=== PATIENT | female | born 1960 | race Caucasian/White ===

== ENCOUNTER 2020-12-30 09:07 | Emergency (ER) | payer BC ==
[2020-12-30] MEDS ORDERED: Ketorolac 30 MG/ML SDV IVPUSH ONE (09:50)
--- NOTE | 2020-12-30 10:25 | EDM.PDOC ---
ED HPI GENERAL MEDICAL PROBLEM - General Chief Complaint: General Stated Complaint: STOMACH PAIN/VOMITTING Time Seen by Provider: 12/30/20 09:45 Source of Information: Reports: Patient, Family History Limitations: Reports: No Limitations - History of Present Illness INITIAL COMMENTS - FREE TEXT/NARRATIVE: 60-year-old female with a history of kidney stones developed left flank and left lower quadrant pain yesterday, she has been struggling with the discomfort for the last 24 hours and today it feels more intense, she has developed some nausea and vomiting and is very uncomfortable. No fevers or chills, no dysuria. Onset: Gradual Duration: Hour(s): (Symptoms have developed over the last 24 hours) Location: Reports: Abdomen, Back (Left flank) Associated Symptoms: Reports: Nausea/Vomiting. Denies: Confusion, Chest Pain, Cough, Fever/Chills, Malaise, Shortness of Breath - Related Data Allergies Allergy/AdvReac Type Severity Reaction Status Date / Time No Known Allergies Allergy Verified 12/16/17 14:23 Home Meds: Home Meds Pantoprazole Sodium 40 mg PO DAILY 06/15/13 [History] Venlafaxine HCl [Venlafaxine ER] 37.5 mg PO DAILY 06/15/13 [History] hydroCHLOROthiazide [Hydrochlorothiazide] 12.5 mg PO DAILY 11/18/17 [History] Past Medical History Cardiovascular History: Reports: Hypertension Gastrointestinal History: Reports: GERD Genitourinary History: Reports: Renal Calculus Musculoskeletal History: Reports: Back Pain, Chronic - Past Surgical History GI Surgical History: Reports: Appendectomy Other GI Surgeries/Procedures: rupured ulcer Social & Family History - Tobacco Use Tobacco Use Status *Q: Never Tobacco User Second Hand Smoke Exposure: No - Caffeine Use Caffeine Use: Reports: Coffee - Recreational Drug Use Recreational Drug Use: No ED ROS GENERAL - Review of Systems Review Of Systems: See Below Constitutional: Reports: Malaise. Denies: Fever, Chills HEENT: Reports: No Symptoms Respiratory: Denies: Shortness of Breath, Wheezing, Cough Cardiovascular: Denies: Chest Pain, Palpitations GI/Abdominal: Reports: Abdominal Pain, Constipation. Denies: Diarrhea : Reports: Flank Pain. Denies: Frequency, Urgency Musculoskeletal: Reports: Back Pain Skin: Reports: No Symptoms (Left side) Neurological: Reports: No Symptoms Psychiatric: Reports: No Symptoms ED EXAM, GENERAL - Physical Exam Exam: See Below Exam Limited By: No Limitations General Appearance: Alert, Anxious, Mild Distress, Other (Nauseous, fairly uncomfortable) Eye Exam: Bilateral Eye: Normal Inspection Head: Atraumatic Respiratory/Chest: No Respiratory Distress, Lungs Clear Cardiovascular: Regular Rate, Rhythm. No: Tachycardia GI/Abdominal: Soft. No: Guarding (Patient has no guarding or rebound of the abdomen, just minimal tenderness in the left lateral and left upper quadrant), Rebound Extremities: Normal Inspection Neurological: Alert, Oriented Psychiatric: Normal Affect, Normal Mood Skin Exam: Warm, Dry Course - Vital Signs Last Recorded V/S: Last Vital Signs Temp 97.7 F 12/30/20 13:53 Pulse 74 12/30/20 13:53 Resp 16 12/30/20 13:53 BP 193/105 H 12/30/20 13:53 Pulse Ox 98 12/30/20 13:53 - Orders/Labs/Meds Labs: Laboratory Tests 12/30/20 12/30/20 12/30/20 Range/Units 10:23 11:20 11:20 WBC 3.4 L (4.5-11.0) K/uL RBC 4.46 (3.30-5.50) M/uL Hgb 12.3 D (12.0-15.0) g/dL Hct 36.1 (36.0-48.0) % MCV 81 (80-98) fL MCH 28 (27-31) pg MCHC 34 (32-36) % Plt Count 258 (150-400) K/uL Neut % (Auto) 70 H (36-66) % Lymph % (Auto) 23 L (24-44) % Slope % (Auto) 6 (2-6) % Eos % (Auto) 0 L (2-4) % Baso % (Auto) 0 (0-1) % Sodium 133 L (140-148) mmol/L Potassium 4.0 (3.6-5.2) mmol/L Chloride 92 L (100-108) mmol/L Carbon Dioxide 27 (21-32) mmol/L Anion Gap 18.0 H (5.0-14.0) mmol/L BUN 9 (7-18) mg/dL Creatinine 0.8 (0.6-1.0) mg/dL Est Cr Clr Drug Dosing 68.12 mL/min Estimated GFR (MDRD) > 60 (>60) Glucose 102 (74-106) mg/dL Lactic Acid (0.4-2.0) mmol/L Calcium 8.8 (8.5-10.1) mg/dL Total Bilirubin 0.8 (0.2-1.0) mg/dL AST 28 (15-37) U/L ALT 31 (12-78) U/L Alkaline Phosphatase 88 (46-116) U/L Total Protein 7.6 (6.4-8.2) g/dL Albumin 4.0 (3.4-5.0) g/dL Globulin 3.6 H (2.3-3.5) g/dL Albumin/Globulin Ratio 1.1 L (1.2-2.2) Lipase 275 (73-393) U/L Urine Color Yellow (YELLOW) Urine Appearance Cloudy A (CLEAR) Urine pH 8.0 (5.0-8.0) Ur Specific [place] 1.020 (1.008-1.030) Urine Protein Negative (NEGATIVE) mg/dL Urine Glucose (UA) Negative (NEGATIVE) mg/dL Urine Ketones 15 H (NEGATIVE) mg/dL Urine Occult Blood Trace-intact H (NEGATIVE) Urine Nitrite Negative (NEGATIVE) Urine Bilirubin Negative (NEGATIVE) Urine Urobilinogen 0.2 (0.2-1.0) EU/dL Ur Leukocyte Esterase Negative (NEGATIVE) Urine RBC 0-5 (0-5) Urine WBC Not seen (0-5) Ur Epithelial Cells Rare Amorphous Sediment Moderate Urine Bacteria Rare Urine Mucus Not seen 12/30/20 Range/Units 11:20 WBC (4.5-11.0) K/uL RBC (3.30-5.50) M/uL Hgb (12.0-15.0) g/dL Hct (36.0-48.0) % MCV (80-98) fL MCH (27-31) pg MCHC (32-36) % Plt Count (150-400) K/uL Neut % (Auto) (36-66) % Lymph % (Auto) (24-44) % Slope % (Auto) (2-6) % Eos % (Auto) (2-4) % Baso % (Auto) (0-1) % Sodium (140-148) mmol/L Potassium (3.6-5.2) mmol/L Chloride (100-108) mmol/L Carbon Dioxide (21-32) mmol/L Anion Gap (5.0-14.0) mmol/L BUN (7-18) mg/dL Creatinine (0.6-1.0) mg/dL Est Cr Clr Drug Dosing mL/min Estimated GFR (MDRD) (>60) Glucose (74-106) mg/dL Lactic Acid 0.6 (0.4-2.0) mmol/L Calcium (8.5-10.1) mg/dL Total Bilirubin (0.2-1.0) mg/dL AST (15-37) U/L ALT (12-78) U/L Alkaline Phosphatase (46-116) U/L Total Protein (6.4-8.2) g/dL Albumin (3.4-5.0) g/dL Globulin (2.3-3.5) g/dL Albumin/Globulin Ratio (1.2-2.2) Lipase (73-393) U/L Urine Color (YELLOW) Urine Appearance (CLEAR) Urine pH (5.0-8.0) Ur Specific [place] (1.008-1.030) Urine Protein (NEGATIVE) mg/dL Urine Glucose (UA) (NEGATIVE) mg/dL Urine Ketones (NEGATIVE) mg/dL Urine Occult Blood (NEGATIVE) Urine Nitrite (NEGATIVE) Urine Bilirubin (NEGATIVE) Urine Urobilinogen (0.2-1.0) EU/dL Ur Leukocyte Esterase (NEGATIVE) Urine RBC (0-5) Urine WBC (0-5) Ur Epithelial Cells Amorphous Sediment Urine Bacteria Urine Mucus Meds: Medications Discontinued Medications Generic Name Dose Route Start Last Admin Trade Name Freq PRN Reason Stop Dose Admin Hydromorphone HCl 0.5 mg 12/30/20 11:21 12/30/20 11:27 Hydromorphone 0.5 Mg/0.5 Ml Syringe IVPUSH 12/30/20 11:22 0.5 mg ONETIME ONE Administration Hydromorphone HCl 0.5 mg 12/30/20 15:26 12/30/20 15:32 Hydromorphone 0.5 Mg/0.5 Ml Syringe IVPUSH 12/30/20 15:27 0.5 mg ONETIME ONE Administration Sodium Chloride 1,000 mls @ 999 mls/hr 12/30/20 11:21 12/30/20 11:25 Normal Saline IV 12/30/20 12:21 999 mls/hr ONETIME ONE Administration Sodium Chloride 80 mls @ 3 mls/sec 12/30/20 13:15 12/30/20 13:20 Normal Saline IV 12/30/20 13:16 3 mls/sec ASDIRECTED TANI Administration Iopamidol 100 ml 12/30/20 13:09 12/30/20 13:20 Iopamidol 612 Mg/Ml 100 Ml Bottle IV 12/31/20 13:10 100 ml . DIRECTED PRN Administration RADIOLOGY EXAM Ketorolac Tromethamine 30 mg 12/30/20 09:50 12/30/20 10:29 Ketorolac 30 Mg/Ml Sdv IVPUSH 12/30/20 09:51 30 mg ONETIME ONE Administration Metoclopramide HCl 5 mg 12/30/20 14:52 12/30/20 14:57 Metoclopramide 10 Mg/2 Ml Sdv IVPUSH 12/30/20 14:53 5 mg ONETIME ONE Administration Ondansetron HCl 4 mg 12/30/20 12:52 12/30/20 13:11 Ondansetron 4 Mg/2 Ml Sdv IVPUSH 12/30/20 12:53 4 mg ONETIME ONE Administration Sodium Chloride 10 ml 12/30/20 13:09 12/30/20 13:20 Sodium Chloride 0.9% 10 Ml Syringe FLUSH 12/30/20 13:10 10 ml ONETIME ONE Administration - Re-Assessments/Exams Free Text/Narrative Re-Assessment/Exam: 12/30/20 16:38 IV was started, patient was given 30 mg of IV Toradol and she was prepared for CT scan of the abdomen and pelvis without contrast. Surprisingly this was normal, she really did not get much relief from the Toradol and continued to be nauseated with occasional emesis so was given Zofran. CBC CMP lactic acid were drawn which were all normal, UA was obtained which showed no infection or blood. Because I could not get her pain under control that her symptoms improved, the CT scan was repeated with IV contrast looking for a possible ischemic kidney or infarction but that was normal as well. She seemed to respond better to IV Dilaudid. She was finally discharged with 10 doses of Percocet and sublingual Zofran, and encouraged to take stool softeners as the only consistent reading with the 2 CT scans with significant colonic stool present. She will return if worsening Departure - Departure Time of Disposition: 15:56 Disposition: Home, Self-Care 01 Clinical Impression: Left flank pain Nausea and vomiting Qualifiers: Vomiting type: unspecified Vomiting Intractability: non-intractable Qualified Code(s): R11.2 - Nausea with vomiting, unspecified - Discharge Information Instructions: Flank Pain, Adult, [id number] Referrals: Anne yBrd PA [Primary Care Provider] - Forms: ED Department Discharge Care Plan Goals: Try some stool softener like MiraLAX for a few days to avoid further buildup of constipation, use Zofran for nausea as needed and increase diet and activity as tolerated. Consider rechecking if worsening such as fever, increased vomiting or worsening pain despite anti-inflammatories. Use Percocet for extra pain control if needed over the next 1 to 2 days. Sepsis Event Note (ED) - Evaluation Sepsis Screening Result: No Definite Risk - Focused Exam Vital Signs: Vital Signs Temp Pulse Resp BP Pulse Ox 12/30/20 13:53 97.7 F 74 16 193/105 H 98 12/30/20 11:30 98.4 F 77 16 177/112 H 96 12/30/20 09:44 197/111 H 12/30/20 09:43 98 F 80 16 208/120 H 98 12/30/20 09:34 98 F 80 16 208/120 H 98
--- NOTE | 2020-12-30 11:07 | CRLCT ---
Indication: Left flank pain Technique: Noncontrast CT abdomen and pelvis Comparison: CT abdomen and pelvis 09/07/2012 Findings: Heart size is normal no pericardial effusion. Basilar atelectasis no effusion. Gallbladder slightly prominent. Unenhanced liver pancreas adrenal glands unremarkable spleen unremarkable. Normal caliber abdominal aorta. No renal calculi visualized. Subcentimeter slightly dense lesion in the left mid kidney too small to characterize. No hydronephrosis on the left. Slight prominence of the right renal pelvis and ureter. No obstructing stones are identified. Urinary bladder slightly distended but unremarkable. Large amount of stool throughout the entire colon. No obstruction Small amount of fluid in the pelvis. No suspicious bony lesions. Impression: 1. No acute findings in the abdomen pelvis. No renal calculi. No hydronephrosis on the left. Slight prominence of the right renal pelvis and ureter no obstructing stones visualized. 2. Large amount stool throughout the colon no obstruction seen. Please note that all CT scans at this facility use dose modulation, iterative reconstruction, and/or weight-based dosing when appropriate to reduce radiation dose to as low as reasonably achievable. Dictated by Carmen Messer MD @ 12/30/2020 11:07:[address] Carmen Messer @ Dec 30 2020 11:07AM
[2020-12-30] MEDS ORDERED: HYDROmorphone 0.5 MG/0.5 ML Syringe IVPUSH ONE ×3 (11:21→15:26)
[2020-12-30] MEDS ORDERED: Sodium Chloride 0.9% 1,000 ML IV ONE (11:21)
[2020-12-30] MEDS ORDERED: Sodium Chloride 0.9% 1,000 ML IV SCH (11:45)
[2020-12-30] MEDS ORDERED: Ondansetron 4 MG/2 ML SDV IVPUSH ONE (12:52)
[2020-12-30] MEDS ORDERED: Sodium Chloride 0.9% 10 ML Syringe FLUSH ONE (13:09)
[2020-12-30] MEDS ORDERED: Iopamidol 612 MG/ML 100 ML Bottle IV PRN (13:09)
[2020-12-30] MEDS ORDERED: Sodium Chloride 0.9% 80 ML IV SCH (13:15)
[2020-12-30 13:54] VITALS: BP 193/105; PULSE 74
--- NOTE | 2020-12-30 14:13 | CRLCT ---
INDICATION: Left flank pain TECHNIQUE: CT abdomen and pelvis urogram without and with 100 cc Omnipaque 350 IV contrast. Contrast images were obtained in the nephrographic and delayed phases. The initial noncontrast images were acquired through the abdomen only as the patient had a noncontrast CT of the abdomen and pelvis earlier today COMPARISON: Noncontrast CT 12/30/2020 FINDINGS: KIDNEYS: The unenhanced images demonstrate no kidney or ureteral stones. The kidneys are normal in caliber and demonstrate normal uptake and excretion of IV contrast. No solid masses. Nonenhancing slightly hyperdense cyst within the midportion of the left kidney represents a normal proteinaceous or hemorrhagic cyst measuring 7 millimeters, unrelated to the history of left flank pain. The renal collecting systems and ureters are symmetrical, normal in caliber, and without evidence of mass or filling defect. URINARY BLADDER: The urinary bladder is distended and without evidence of mass, wall thickening, or inflammation. OTHER: Mild dependent atelectasis/scarring. Gallbladder distended with prominence of the common bile duct. Normal tapering. Liver normal. Normal spleen and adrenal glands. Pancreatic parenchyma normal. No adenopathy or free air. No excess pelvic free fluid. No pelvic mass. Large volume stool in the transverse colon. Degenerative disc disease L5-S1 with discogenic sclerosis. Grade 1 degenerative spondylolisthesis L4 on L5. IMPRESSION: 1. Unremarkable CT urogram. No findings to explain left flank pain. 2. Incidental 7 millimeter hemorrhagic or proteinaceous cysts left kidney. 3. Large volume stool in the colon consistent with constipation. Please note that all CT scans at this facility use dose modulation, iterative reconstruction, and/or weight-based dosing when appropriate to reduce radiation dose to as low as reasonably achievable. Dictated by Danial Henry MD @ 12/30/2020 2:11:[address] Danial Henry @ Dec 30 2020 2:11PM
[2020-12-30] MEDS ORDERED: Metoclopramide 10 MG/2 ML SDV IVPUSH ONE (14:52)
== END 2020-12-30 15:56 | disposition home or self-care (01) ==
LOC: JP.ED 09:07
DX: R10.32 Left lower quadrant pain (principal); R11.2 Nausea with vomiting, unspecified; I10 Essential (primary) hypertension; K21.9 Gastro-esophageal reflux disease without esophagitis; Z79.899 Other long term (current) drug therapy
CPT/HCPCS: 36415; 74176; 74178; 80053; 81001; 83605; 83690; 85025; 96374; 96375; 96376; 99284; J1170; J1885; J2405; J2765; J7030; Q9967

== ENCOUNTER 2021-01-09 08:32 | Observation (INO) | payer BC ==
[2021-01-09] MEDS ORDERED: Ondansetron 4 MG/2 ML SDV IVPUSH ONE (09:05)
[2021-01-09] MEDS ORDERED: Sodium Chloride 0.9% 1,000 ML IV ONE (09:05)
--- NOTE | 2021-01-09 09:17 | EDM.PDOC ---
ED HPI GENERAL MEDICAL PROBLEM - General Chief Complaint: Abdominal Pain Stated Complaint: BOWEL OBSTRUCTION Time Seen by Provider: 01/09/21 09:00 Source of Information: Reports: Patient History Limitations: Reports: No Limitations - History of Present Illness INITIAL COMMENTS - FREE TEXT/NARRATIVE: 60-year-old female with persistent symptoms of pain in the left lower quadrant for the past 10 days. She felt she passed a kidney stone several days ago, but is continuing to have problems with abdominal pain, nausea with eating and emesis. No fevers or chills, no urinary symptoms. The pain is very localized to the left lower quadrant, at times radiating to the left flank. She was seen in the clinic 2 days ago and was told she still has "lots of stool but no obstruction", she is still taking a lot of laxatives. Onset: Other (Symptoms have been ongoing for almost 2 weeks) Location: Reports: Abdomen (Especially in left lower quadrant), Radiates to (Some intermittent radiation to the left flank area) Worsens with: Reports: Other (Anytime she tries to eat, she becomes more nauseated and has increased pain) Abdominal Pain Score (Numeric/FACES): 9 - Related Data Allergies Allergy/AdvReac Type Severity Reaction Status Date / Time No Known Allergies Allergy Verified 01/09/21 08:50 Home Meds: Home Meds Pantoprazole Sodium 40 mg PO DAILY 06/15/13 [History] Venlafaxine HCl [Venlafaxine ER] 37.5 mg PO DAILY 06/15/13 [History] hydroCHLOROthiazide [Hydrochlorothiazide] 12.5 mg PO DAILY 11/18/17 [History] Past Medical History HEENT History: Reports: None Cardiovascular History: Reports: Hypertension Respiratory History: Reports: None Gastrointestinal History: Reports: GERD, PUD Genitourinary History: Reports: Renal Calculus Musculoskeletal History: Reports: Back Pain, Chronic Neurological History: Reports: None Psychiatric History: Reports: None Endocrine/Metabolic History: Reports: None Hematologic History: Reports: None Immunologic History: Reports: None Oncologic (Cancer) History: Reports: None Dermatologic History: Reports: None - Infectious Disease History Infectious Disease History: Reports: Chicken Pox - Past Surgical History HEENT Surgical History: Reports: None GI Surgical History: Reports: Appendectomy Other GI Surgeries/Procedures: rupured ulcer Social & Family History - Tobacco Use Tobacco Use Status *Q: Never Tobacco User - Caffeine Use Caffeine Use: Reports: None - Recreational Drug Use Recreational Drug Use: No ED ROS GENERAL - Review of Systems Review Of Systems: See Below Constitutional: Denies: Fever, Chills HEENT: Reports: No Symptoms Respiratory: Denies: Shortness of Breath, Cough Cardiovascular: Denies: Chest Pain GI/Abdominal: Reports: Abdominal Pain, Decreased Appetite, Nausea, Vomiting. Denies: Diarrhea : Reports: No Symptoms Skin: Reports: No Symptoms Neurological: Reports: No Symptoms ED EXAM, GI/ABD - Physical Exam Exam: See Below Exam Limited By: No Limitations General Appearance: Alert, No Apparent Distress (Looks uncomfortable but not distressed) Eyes: Bilateral: Normal Appearance (No jaundice) Respiratory/Chest: No Respiratory Distress Cardiovascular: Regular Rate, Rhythm GI/Abdominal Exam: Soft, Tender (glass cleaning machine tender locally in the extreme left lower quadrant, mild rebound tenderness is now present but no significant guarding) Neurological: Alert, Oriented Psychiatric: Normal Affect, Normal Mood Skin Exam: Warm, Dry Course - Vital Signs Last Recorded V/S: Last Vital Signs Temp 98.6 F 01/10/21 08:51 Pulse 86 01/10/21 08:51 Resp 16 01/10/21 08:51 BP 160/101 H 01/10/21 08:51 Pulse Ox 100 01/10/21 08:51 - Orders/Labs/Meds Orders: Active Orders 24 hr Category Date Time Status Patient Status [ADT] Routine ADT 01/09/21 16:43 Active Ambulate [RC] QID Care 01/09/21 16:43 Active Height and Weight [RC] DAILY Care 01/09/21 16:43 Active Intake and Output [RC] QSHIFT Care 01/09/21 16:43 Active Notify Provider Consults [RC] ASDIRECTED Care 01/09/21 16:43 Active Notify Provider Vital Signs [RC] ASDIRECTED Care 01/09/21 16:43 Active Oxygen Therapy [RC] PRN Care 01/09/21 16:43 Active Peripheral IV Care [RC] . DIRECTED Care 01/09/21 16:43 Active Up ad Jumana [RC] ASDIRECTED Care 01/09/21 16:43 Active Up to Chair [RC] QID Care 01/09/21 16:43 Active VTE/DVT Education [RC] Per Unit Routine Care 01/09/21 16:43 Active Verify Patient Consent Obtain [RC] ASDIRECTED Care 01/09/21 16:43 Active Vital Signs [RC] Q4H Care 01/09/21 16:43 Active Consult to Physician [CONS] Routine Cons 01/09/21 16:43 Ordered Acetaminophen [TylenoL] Med 01/09/21 16:43 Active 650 mg PO Q4H PRN HYDROmorphone [Dilaudid] Med 01/09/21 16:43 Active 0.5 mg IVPUSH Q2H PRN Labetalol [Normodyne] Med 01/09/21 16:43 Active 10 mg IVPUSH Q4H PRN Ondansetron [Zofran] Med 01/09/21 16:43 Active 4 mg IV Q4H PRN Pantoprazole [ProTONIX] Med 01/10/21 07:30 Active 40 mg PO DAILY@0730 Sodium Chloride 0.9% [Normal Saline] 1,000 ml Med 01/09/21 16:43 Active IV ASDIRECTED Sodium Chloride 0.9% [Saline Flush] Med 01/09/21 16:43 Active 10 ml FLUSH ASDIRECTED PRN Venlafaxine [Effexor XR] Med 01/10/21 09:00 Active 37.5 mg PO DAILY hydroCHLOROthiazide Med 01/09/21 16:43 Active 12.5 mg PO DAILY oxyCODONE Med 01/09/21 16:43 Active 5 mg PO Q4H PRN Peripheral IV Insertion Adult [OM.PC] Routine Oth 01/09/21 16:43 Ordered Schedule Procedure [COMM] Routine Oth 01/09/21 16:43 Ordered Sequential Compression Device [OM.PC] Per Unit Routine Oth 01/09/21 16:43 Ordered Resuscitation Status Routine Resus Stat 01/09/21 16:21 Ordered Medication Orders Acetaminophen (Acetaminophen 325 Mg Tab) 650 mg PO Q4H PRN PRN Reason: Pain (Mild 1-3)/fever Last Admin: 01/10/21 08:58 Dose: 650 mg Documented by: Admin: 01/09/21 22:55 Dose: 650 mg Documented by: WILMER Hydrochlorothiazide (Hydrochlorothiazide 12.5 Mg Cap) 12.5 mg PO DAILY TANI Last Admin: 01/10/21 08:57 Dose: 12.5 mg Documented by: Admin: 01/09/21 17:10 Dose: 12.5 mg Documented by: BELLA Hydromorphone HCl (Hydromorphone 0.5 Mg/0.5 Ml Syringe) 0.5 mg IVPUSH Q2H PRN PRN Reason: Pain (severe 7-10) Sodium Chloride (Normal Saline) 1,000 mls @ 125 mls/hr IV ASDIRECTED [facility] Last Admin: 01/10/21 09:06 Dose: 125 mls/hr Documented by: Infusion: 01/10/21 09:06 Dose: 125 mls/hr Documented by: Admin: 01/10/21 01:33 Dose: 125 mls/hr Documented by: Infusion: 01/10/21 01:24 Dose: 125 mls/hr Documented by: Admin: 01/09/21 17:24 Dose: 125 mls/hr Documented by: BELLA Labetalol HCl (Labetalol 20 Mg/4 Ml Syringe) 10 mg IVPUSH Q4H PRN; Protocol PRN Reason: Hypertension Ondansetron HCl (Ondansetron 4 Mg/2 Ml Sdv) 4 mg IV Q4H PRN PRN Reason: Nausea/Vomiting Oxycodone HCl (Oxycodone 5 Mg Tab) 5 mg PO Q4H PRN PRN Reason: Pain (moderate 4-6) Pantoprazole Sodium (Pantoprazole 40 Mg Tab.Cr) 40 mg PO DAILY@0730 [facility] Last Admin: 01/10/21 08:57 Dose: 40 mg Documented by: MARCELLA Polyethylene Glycol (Polyethylene Glycol 3350 Powder 119 Gm Bottle) 119 gm PO BID@0900,1600 [facility] Stop: 01/10/21 16:01 Last Admin: 01/10/21 08:57 Dose: 119 gm Documented by: MARCELLA Sodium Chloride (Sodium Chloride 0.9% 10 Ml Syringe) 10 ml FLUSH ASDIRECTED PRN PRN Reason: Keep Vein Open Venlafaxine HCl (Venlafaxine 37.5 Mg Cap.Er) 37.5 mg PO DAILY [facility] Last Admin: 01/10/21 08:57 Dose: 37.5 mg Documented by: MARCELLA Labs: Laboratory Tests 05/08/2001/09/21 01/09/21 Range/Units 09:23 09:23 09:23 WBC 3.2 L (4.5-11.0) K/uL RBC 4.59 (3.30-5.50) M/uL Hgb 12.3 (12.0-15.0) g/dL Hct 37.3 (36.0-48.0) % MCV 81 (80-98) fL MCH 27 (27-31) pg MCHC 33 (32-36) % Plt Count 333 (150-400) K/uL Neut % (Auto) 52 (36-66) % Lymph % (Auto) 32 (24-44) % [place] % (Auto) 14 H (2-6) % Eos % (Auto) 1 L (2-4) % Baso % (Auto) 1 (0-1) % Sodium 127 L (140-148) mmol/L Potassium 3.9 (3.6-5.2) mmol/L Chloride 89 L (100-108) mmol/L Carbon Dioxide 27 (21-32) mmol/L Anion Gap 14.9 H (5.0-14.0) mmol/L BUN 9 (7-18) mg/dL Creatinine 0.7 (0.6-1.0) mg/dL Est Cr Clr Drug Dosing 72.72 mL/min Estimated GFR (MDRD) > 60 (>60) Glucose 106 (74-106) mg/dL Lactic Acid 0.9 (0.4-2.0) mmol/L Calcium 9.0 (8.5-10.1) mg/dL Total Bilirubin 0.6 (0.2-1.0) mg/dL AST 23 (15-37) U/L ALT 30 (12-78) U/L Alkaline Phosphatase 73 (46-116) U/L Total Protein 7.5 (6.4-8.2) g/dL Albumin 4.1 (3.4-5.0) g/dL Globulin 3.4 (2.3-3.5) g/dL Albumin/Globulin Ratio 1.2 (1.2-2.2) Urine Color (YELLOW) Urine Appearance (CLEAR) Urine pH (5.0-8.0) Ur Specific [place] (1.008-1.030) Urine Protein (NEGATIVE) mg/dL Urine Glucose (UA) (NEGATIVE) mg/dL Urine Ketones (NEGATIVE) mg/dL Urine Occult Blood (NEGATIVE) Urine Nitrite (NEGATIVE) Urine Bilirubin (NEGATIVE) Urine Urobilinogen (0.2-1.0) EU/dL Ur Leukocyte Esterase (NEGATIVE) Urine RBC (0-5) Urine WBC (0-5) Ur Epithelial Cells Amorphous Sediment Urine Bacteria Urine Mucus 01/09/21 Range/Units 09:35 WBC (4.5-11.0) K/uL RBC (3.30-5.50) M/uL Hgb (12.0-15.0) g/dL Hct (36.0-48.0) % MCV (80-98) fL MCH (27-31) pg MCHC (32-36) % Plt Count (150-400) K/uL Neut % (Auto) (36-66) % Lymph % (Auto) (24-44) % [place] % (Auto) (2-6) % Eos % (Auto) (2-4) % Baso % (Auto) (0-1) % Sodium (140-148) mmol/L Potassium (3.6-5.2) mmol/L Chloride (100-108) mmol/L Carbon Dioxide (21-32) mmol/L Anion Gap (5.0-14.0) mmol/L BUN (7-18) mg/dL Creatinine (0.6-1.0) mg/dL Est Cr Clr Drug Dosing mL/min Estimated GFR (MDRD) (>60) Glucose (74-106) mg/dL Lactic Acid (0.4-2.0) mmol/L Calcium (8.5-10.1) mg/dL Total Bilirubin (0.2-1.0) mg/dL AST (15-37) U/L ALT (12-78) U/L Alkaline Phosphatase (46-116) U/L Total Protein (6.4-8.2) g/dL Albumin (3.4-5.0) g/dL Globulin (2.3-3.5) g/dL Albumin/Globulin Ratio (1.2-2.2) Urine Color Yellow (YELLOW) Urine Appearance Clear (CLEAR) Urine pH 6.0 (5.0-8.0) Ur Specific [place] 1.020 (1.008-1.030) Urine Protein Negative (NEGATIVE) mg/dL Urine Glucose (UA) Negative (NEGATIVE) mg/dL Urine Ketones 15 H (NEGATIVE) mg/dL Urine Occult Blood Negative (NEGATIVE) Urine Nitrite Negative (NEGATIVE) Urine Bilirubin Small H (NEGATIVE) Urine Urobilinogen 0.2 (0.2-1.0) EU/dL Ur Leukocyte Esterase Trace H (NEGATIVE) Urine RBC 0-5 (0-5) Urine WBC 0-5 (0-5) Ur Epithelial Cells Rare Amorphous Sediment Not seen Urine Bacteria Rare Urine Mucus Not seen Meds: Medications Generic Name Dose Route Start Last Admin Trade Name Freq PRN Reason Stop Dose Admin Acetaminophen 650 mg 01/09/21 16:43 01/10/21 08:58 Acetaminophen 325 Mg Tab PO 650 mg Q4H PRN Administration Pain (Mild 1-3)/fever Hydrochlorothiazide 12.5 mg 01/09/21 16:43 01/10/21 08:57 Hydrochlorothiazide 12.5 Mg Cap PO 12.5 mg DAILY TANI Administration Hydromorphone HCl 0.5 mg 01/09/21 16:43 Hydromorphone 0.5 Mg/0.5 Ml Syringe IVPUSH Q2H PRN Pain (severe 7-10) Sodium Chloride 1,000 mls @ 125 mls/hr 01/09/21 16:43 01/10/21 09:06 Normal Saline IV 125 mls/hr ASDIRECTED TANI Administration Labetalol HCl 10 mg 01/09/21 16:43 Labetalol 20 Mg/4 Ml Syringe IVPUSH Q4H PRN Hypertension Protocol Ondansetron HCl 4 mg 01/09/21 16:43 Ondansetron 4 Mg/2 Ml Sdv IV Q4H PRN Nausea/Vomiting Oxycodone HCl 5 mg 01/09/21 16:43 Oxycodone 5 Mg Tab PO Q4H PRN Pain (moderate 4-6) Pantoprazole Sodium 40 mg 01/10/21 07:30 01/10/21 08:57 Pantoprazole 40 Mg Tab.Cr PO 40 mg DAILY@0730 TANI Administration Polyethylene Glycol 119 gm 01/10/21 09:00 01/10/21 08:57 Polyethylene Glycol 3350 Powder 119 Gm Bottle PO 01/10/21 16:01 119 gm BID@0900,1600 TANI Administration Sodium Chloride 10 ml 01/09/21 16:43 Sodium Chloride 0.9% 10 Ml Syringe FLUSH ASDIRECTED PRN Keep Vein Open Venlafaxine HCl 37.5 mg 01/10/21 09:00 01/10/21 08:57 Venlafaxine 37.5 Mg Cap.Er PO 37.5 mg DAILY TANI Administration Discontinued Medications Generic Name Dose Route Start Last Admin Trade Name Freq PRN Reason Stop Dose Admin Bisacodyl 10 mg 01/09/21 17:30 01/09/21 17:10 Bisacodyl 5 Mg Tab PO 01/09/21 17:31 10 mg ONETIME ONE Administration Bisacodyl 10 mg 01/09/21 21:00 01/09/21 20:41 Bisacodyl 5 Mg Tab PO 01/09/21 21:01 10 mg ONETIME ONE Administration Diatrizoate Meglum/Diatrizoate Sod 1,200 ml 01/09/21 13:17 01/09/21 14:13 Diatrizoate Meglumine/Diatrizoate Sodium 37% 120 Ml Bottle PO 1,200 ml . DIRECTED PRN Administration RADIOLOGY EXAM Fentanyl 50 mcg 01/09/21 11:13 01/09/21 11:19 Fentanyl 100 Mcg/2 Ml Sdv IVPUSH 01/09/21 11:14 50 mcg ONETIME ONE Administration Fentanyl 50 mcg 01/09/21 14:38 01/09/21 14:48 Fentanyl 100 Mcg/2 Ml Sdv IVPUSH 01/09/21 14:39 50 mcg ONETIME ONE Administration Sodium Chloride 1,000 mls @ 1,000 mls/hr 01/09/21 09:05 01/09/21 09:46 Normal Saline IV 01/09/21 10:04 1,000 mls/hr .BOLUS ONE Administration Sodium Chloride 70 mls @ 3 mls/sec 01/09/21 11:30 01/09/21 11:31 Normal Saline IV 01/09/21 11:45 3 mls/sec ASDIRECTED TANI Administration Iopamidol 81 ml 01/09/21 11:16 01/09/21 11:32 Iopamidol 612 Mg/Ml 500 Ml Multipack Bottle IV 01/09/21 11:17 81 ml ONETIME ONE Administration Labetalol HCl 10 mg 01/09/21 12:10 01/09/21 12:32 Labetalol 20 Mg/4 Ml Syringe IVPUSH 01/09/21 12:11 10 mg NOW ONE Administration Protocol Ondansetron HCl 4 mg 01/09/21 09:05 01/09/21 09:47 Ondansetron 4 Mg/2 Ml Sdv IVPUSH 01/09/21 09:06 4 mg ONETIME ONE Administration Polyethylene Glycol 238 gm 01/09/21 18:00 01/09/21 17:18 Polyethylene Glycol 3350 Powder 238 Gm Bot PO 01/09/21 18:01 238 gm ONETIME ONE Administration Potassium Chloride 40 meq 01/10/21 09:00 01/10/21 09:00 Potassium Chloride 20 Meq Tab.Er PO 01/10/21 09:01 40 meq ONETIME ONE Administration Sodium Biphosphate/Sodium Phosphate 133 ml 01/09/21 17:30 01/09/21 17:17 Sodium Phosphate,Monobasic/Sodium Phosphate,Dibasic Enema 133 Ml Bottle RECTAL 01/09/21 17:31 133 ml ONETIME ONE Administration Sodium Chloride 10 ml 01/09/21 11:16 01/09/21 12:08 Sodium Chloride 0.9% 10 Ml Syringe FLUSH 01/09/21 11:17 10 ml ONETIME ONE Administration - Re-Assessments/Exams Free Text/Narrative Re-Assessment/Exam: 01/09/21 09:27 A UA will be repeated, CBC CMP drawn and patient will be bolused with 1 L normal saline and given 4 mg of IV Zofran in preparation of an IV enhanced abdomen and pelvis CT with both oral and IV contrast. 01/09/21 11:13 Labs and urine were nonspecific, reassuring. She was given 50 mcg of fentanyl because the pain increased with the oral contrast. 01/09/21 15:03 Labs again returned generally reassuring. She does have some ketones in her urine indicating mild dehydration. A CT of the abdomen with both oral and IV contrast was done which showed again significant retention of stool with a possible point of blockage in the sigmoid. After discussion with Dr. Hawkins, a CT of the abdomen and pelvis with Gastrografin contrast was done which was discussed with radiology and surgery. Patient needed 2 doses of fentanyl IV to help with the pain. She has an extremely redundant colon, Dr. Hawkins's plan was to have her admitted, hydrated, and try to prepare for colonoscopy over the next several days. Patient was comfortable with the plan, Dr. Branch was consulted for admission with eventual surgical consultation and probably GI consultation as well. After the Gastrografin enema, she only had a small amount of stool released, it was also recommended she get a delayed KUB tomorrow morning. Departure - Departure Time of Disposition: 16:46 Disposition: Admitted As Inpatient 66 Clinical Impression: Abdominal pain Qualifiers: Abdominal location: left lower quadrant Qualified Code(s): R10.32 - Left lower quadrant pain Constipation Qualifiers: Constipation type: other constipation type Qualified Code(s): K59.09 - Other constipation - Discharge Information Sepsis Event Note (ED) - Evaluation Sepsis Screening Result: No Definite Risk
[2021-01-09] MEDS ORDERED: fentaNYL 100 MCG/2 ML SDV IVPUSH ONE ×2 (11:13→14:38)
[2021-01-09] MEDS ORDERED: Sodium Chloride 0.9% 10 ML Syringe FLUSH ONE (11:16)
[2021-01-09] MEDS ORDERED: Iopamidol 612 MG/ML 500 ML Multipack Bottle IV ONE (11:16)
--- NOTE | 2021-01-09 12:15 | CT ---
Abdomen Pelvis w Cont CLINICAL HISTORY: Persistent abdominal pain, fecal retention COMPARISON: Noncontrast study 12/30/2020. TECHNIQUE: Transverse scans were obtained from the base of the lungs to the pubic symphysis following oral contrast and IV infusion of contrast.Auto dosage reduction and iterative reconstructiontechniques employed. FINDINGS: There is significant fecal retention throughout the colon with dilatation. There is a relatively normal caliber sigmoid colon which is not well seen. Some element of sigmoid obstruction is not excluded. The lung bases are clear. The liver shows no mass or biliary dilatation. The gallbladder is mildly prominent but similar in appearance to prior study. No stones are seen. The spleen has a normal size and shape. The pancreas shows no mass or inflammatory change. The adrenal glands appear normal bilaterally . The kidneys show no mass, stones or hydronephrosis. Ureters have a normal course and caliber as seen.. The small calcification previously seen in the region of the distal ureter on prior study persists. There is some contrast in prominent the pelvic veins on the left. This calcification is likely vascular as opposed to urinary. There is a prominent left ovarian vein The aorta has a normal course and caliber. There is no suspicious retroperitoneal adenopathy. IMPRESSION: Significant fecal retention with much of the colon being dilated. The sigmoid and rectum have a normal caliber as seen. There is some limitation due to a paucity of pelvic fat and is adjacent to opacified bowel. Further investigation warranted. A limited Gastrografin contrast enema is a consideration to exclude sigmoid obstruction Previously described calcification in the low left pelvis near the distal ureter is most likely vascular in nature as opposed to urinary
[2021-01-09] MEDS: Labetalol 20 MG/4 ML Syringe IVPUSH ONE ×2 (12:30→12:32)
[2021-01-09] MEDS ORDERED: Diatrizoate Meglumine/Diatrizoate Sodium 37% 120 ML Bottle PO PRN (13:17)
--- NOTE | 2021-01-09 14:46 | CR ---
Water-soluble contrast Enema Comp CLINICAL HISTORY: Left lower quadrant pain, constipation FINDINGS: Pulmonary film of the abdomen shows moderate fecal retention which is also seen on prior CT abdomen. There is some contrast in the bladder and in the right colon from prior CT Are soluble contrast flowed from the rectum through a very tortuous sigmoid colon. There is some delay in filling of the descending colon. There is some smooth narrowing seen in the early filling films in the proximal third of the sigmoid. This appears to resolve on latter images Delayed images showed contrast extending into the descending colon and a very redundant transverse colon which drops into the pelvis again. IMPRESSION: Very redundant colon Significant retained feces. This probably was fecal impaction in that no definite annular constricting lesion or stricture is identified. A short segment lesion would be difficult to absolutely exclude. There is eventual flow into the descending and transverse colon. Patient did not evacuate significantly post procedure. Delayed KUB should be considered for the a.m.
--- NOTE | 2021-01-09 16:34 | PCM.HP.2 ---
H&P History of Present Illness - General Date of Service: 01/09/21 Admit Problem/Dx: Admission Diagnosis/Problem Admission Diagnosis/Problem Constipation Source of Information: Patient, Old Records, Provider, RN Notes Reviewed History Limitations: Reports: No Limitations - History of Present Illness Initial Comments - Free Text/Narative: Ms. Rodriguez is a 60-year-old woman who was admitted through the emergency department observation status with left lower quadrant abdominal pain, nausea and vomiting, secondary to severe constipation and probable underlying colon dysfunction. She has had a lifelong history of constipation. This has become much worse over the past 3 weeks, during this period of time has had only minimal stool output. She has been seen previously in the emergency department and at that time CT scan did document significant stool retention and some e nlargement of the colon. She has tried several things at home including multiple cathartics with no significant improvement. She has experienced increased left lower quadrant abdominal pain as well as nausea vomiting with very poor oral intake. CT scan of the abdomen pelvis was repeated today and again shows significant amount of retained stool with some enlargement of the colon. Barium enema was also performed showing no obvious obstruction. She will be admitted to observation status for management of her constipation and colonoscopy if possible. Abdominal Pain Score (Numeric/FACES): 4 - Related Data Allergies/Adverse Reactions: Allergies Allergy/AdvReac Type Severity Reaction Status Date / Time No Known Allergies Allergy Verified 01/09/21 08:50 Home Medications: Home Meds Pantoprazole Sodium 40 mg PO DAILY 06/15/13 [History] Venlafaxine HCl [Venlafaxine ER] 37.5 mg PO DAILY 06/15/13 [History] hydroCHLOROthiazide [Hydrochlorothiazide] 12.5 mg PO DAILY 11/18/17 [History] Past Medical History HEENT History: Reports: None Cardiovascular History: Reports: Hypertension Respiratory History: Reports: None Gastrointestinal History: Reports: GERD, PUD Genitourinary History: Reports: Renal Calculus Musculoskeletal History: Reports: Back Pain, Chronic Neurological History: Reports: None Psychiatric History: Reports: None Endocrine/Metabolic History: Reports: None Hematologic History: Reports: None Immunologic History: Reports: None Oncologic (Cancer) History: Reports: None Dermatologic History: Reports: None - Infectious Disease History Infectious Disease History: Reports: Chicken Pox - Past Surgical History HEENT Surgical History: Reports: None GI Surgical History: Reports: Appendectomy Other GI Surgeries/Procedures: rupured ulcer Social & Family History - Tobacco Use Tobacco Use Status *Q: Never Tobacco User - Caffeine Use Caffeine Use: Reports: None - Recreational Drug Use Recreational Drug Use: No H&P Review of Systems - Review of Systems: Review Of Systems: See Below General: Reports: Weakness, Decreased Appetite. Denies: Fever, Chills, Malaise, Fatigue, Night Sweats HEENT: Reports: No Symptoms Pulmonary: Reports: No Symptoms Cardiovascular: Reports: No Symptoms Gastrointestinal: Reports: Abdominal Pain, Constipation, Decreased Appetite, Distension, Nausea, Vomiting. Denies: Diarrhea, Difficulty Swallowing, Hematemesis, Hematochezia, Melena Genitourinary: Reports: No Symptoms Musculoskeletal: Reports: No Symptoms Skin: Reports: No Symptoms Psychiatric: Reports: No Symptoms Neurological: Reports: No Symptoms Hematologic/Lymphatic: Reports: No Symptoms Immunologic: Reports: No Symptoms Exam - Exam Exam: See Below - Vital Signs Vital Signs: Last Vital Signs Temp 97.0 F 01/09/21 08:41 Pulse 70 01/09/21 16:18 Resp 18 01/09/21 11:52 BP 173/109 H 01/09/21 16:18 Pulse Ox 99 01/09/21 16:18 Weight: 118 lb 13.266 oz - Exam Quality Assessment: DVT Prophylaxis General: Alert, Oriented, Cooperative, Moderate Distress HEENT: Conjunctiva Clear, Hearing Intact, Normal Nasal Septum, Posterior Pharynx Clear, Pupils Equal. No: Mucosa Moist & [place] Neck: Supple, Trachea Midline, +2 Carotid Pulse wo Bruit Lungs: Clear to Auscultation, Normal Respiratory Effort Cardiovascular: Regular Rate, Regular Rhythm, Normal S1, Normal S2. No: Systolic Murmur, Diastolic Murmur GI/Abdominal Exam: Soft, No Organomegaly, Distended, Tender. No: Guarding, Rigid, Rebound Back Exam: Normal Inspection, Full Range of Motion Extremities: Non-Tender, No Pedal Edema Skin: Warm, Dry, Intact Neurological: Cranial Nerves Intact, Strength Equal Bilateral, Normal Speech, Normal Tone, Sensation Intact. No: Focal Deficit Neuro Extensive - Mental Status: Alert, Oriented x3, Normal Mood/Affect, Normal Cognition, Memory Intact - Patient Data Lab Results Last 24 hrs: Laboratory Results - last 24 hr 01/09/21 01/09/21 01/09/21 Range/Units 09:23 09:23 09:23 WBC 3.2 L (4.5-11.0) K/uL RBC 4.59 (3.30-5.50) M/uL Hgb 12.3 (12.0-15.0) g/dL Hct 37.3 (36.0-48.0) % MCV 81 (80-98) fL MCH 27 (27-31) pg MCHC 33 (32-36) % Plt Count 333 (150-400) K/uL Neut % (Auto) 52 (36-66) % Lymph % (Auto) 32 (24-44) % [place] % (Auto) 14 H (2-6) % Eos % (Auto) 1 L (2-4) % Baso % (Auto) 1 (0-1) % Sodium 127 L (140-148) mmol/L Potassium 3.9 (3.6-5.2) mmol/L Chloride 89 L (100-108) mmol/L Carbon Dioxide 27 (21-32) mmol/L Anion Gap 14.9 H (5.0-14.0) mmol/L BUN 9 (7-18) mg/dL Creatinine 0.7 (0.6-1.0) mg/dL Est Cr Clr Drug Dosing 72.72 mL/min Estimated GFR (MDRD) > 60 (>60) Glucose 106 (74-106) mg/dL Lactic Acid 0.9 (0.4-2.0) mmol/L Calcium 9.0 (8.5-10.1) mg/dL Total Bilirubin 0.6 (0.2-1.0) mg/dL AST 23 (15-37) U/L ALT 30 (12-78) U/L Alkaline Phosphatase 73 (46-116) U/L Total Protein 7.5 (6.4-8.2) g/dL Albumin 4.1 (3.4-5.0) g/dL Globulin 3.4 (2.3-3.5) g/dL Albumin/Globulin Ratio 1.2 (1.2-2.2) Urine Color (YELLOW) Urine Appearance (CLEAR) Urine pH (5.0-8.0) Ur Specific [place] (1.008-1.030) Urine Protein (NEGATIVE) mg/dL Urine Glucose (UA) (NEGATIVE) mg/dL Urine Ketones (NEGATIVE) mg/dL Urine Occult Blood (NEGATIVE) Urine Nitrite (NEGATIVE) Urine Bilirubin (NEGATIVE) Urine Urobilinogen (0.2-1.0) EU/dL Ur Leukocyte Esterase (NEGATIVE) Urine RBC (0-5) Urine WBC (0-5) Ur Epithelial Cells Amorphous Sediment Urine Bacteria Urine Mucus 01/09/21 Range/Units 09:35 WBC (4.5-11.0) K/uL RBC (3.30-5.50) M/uL Hgb (12.0-15.0) g/dL Hct (36.0-48.0) % MCV (80-98) fL MCH (27-31) pg MCHC (32-36) % Plt Count (150-400) K/uL Neut % (Auto) (36-66) % Lymph % (Auto) (24-44) % [place] % (Auto) (2-6) % Eos % (Auto) (2-4) % Baso % (Auto) (0-1) % Sodium (140-148) mmol/L Potassium (3.6-5.2) mmol/L Chloride (100-108) mmol/L Carbon Dioxide (21-32) mmol/L Anion Gap (5.0-14.0) mmol/L BUN (7-18) mg/dL Creatinine (0.6-1.0) mg/dL Est Cr Clr Drug Dosing mL/min Estimated GFR (MDRD) (>60) Glucose (74-106) mg/dL Lactic Acid (0.4-2.0) mmol/L Calcium (8.5-10.1) mg/dL Total Bilirubin (0.2-1.0) mg/dL AST (15-37) U/L ALT (12-78) U/L Alkaline Phosphatase (46-116) U/L Total Protein (6.4-8.2) g/dL Albumin (3.4-5.0) g/dL Globulin (2.3-3.5) g/dL Albumin/Globulin Ratio (1.2-2.2) Urine Color Yellow (YELLOW) Urine Appearance Clear (CLEAR) Urine pH 6.0 (5.0-8.0) Ur Specific [place] 1.020 (1.008-1.030) Urine Protein Negative (NEGATIVE) mg/dL Urine Glucose (UA) Negative (NEGATIVE) mg/dL Urine Ketones 15 H (NEGATIVE) mg/dL Urine Occult Blood Negative (NEGATIVE) Urine Nitrite Negative (NEGATIVE) Urine Bilirubin Small H (NEGATIVE) Urine Urobilinogen 0.2 (0.2-1.0) EU/dL Ur Leukocyte Esterase Trace H (NEGATIVE) Urine RBC 0-5 (0-5) Urine WBC 0-5 (0-5) Ur Epithelial Cells Rare Amorphous Sediment Not seen Urine Bacteria Rare Urine Mucus Not seen Result Diagrams: 01/09/21 09:23 01/09/21 09:23 Sepsis Event Note - Evaluation Sepsis Screening Result: No Definite Risk - Focused Exam Vital Signs: Vital Signs Temp Pulse Resp BP Pulse Ox 01/09/21 16:18 70 173/109 H 99 01/09/21 14:33 75 184/102 H 01/09/21 12:26 77 182/137 H 100 01/09/21 11:52 74 18 191/131 H 100 01/09/21 11:00 72 202/119 H 100 01/09/21 10:00 78 192/127 H 99 01/09/21 08:41 97.0 F 93 16 148/112 H 100 *Q Meaningful Use (ADM) - VTE Risk Assess *Q Each Risk Factor Represents 1 Point: None Total Score 1 Point Risk Factors: 0 Each Risk Factor Represents 2 Points: Age 60 - 74 Years Total Score 2 Point Risk Factors: 2 Each Risk Factor Represents 3 Points: None Total Score 3 Point Risk Factors: 0 Each Risk Factor Represents 5 Points: None Total Score 5 Point Risk Factors: 0 Venous Thromboembolism Risk Factor Score *Q: 2 Problem List Initiated/Reviewed/Updated: Yes Orders Last 24hrs: Active Orders 24 hr Category Date Time Status Patient Status Manage Transfer [TRANSFER] Routine ADT 01/09/21 16:20 Active Resuscitation Status Routine Resus Stat 01/09/21 16:21 Ordered Assessment/Plan Comment:: ASSESSMENT AND PLAN SEVERE CONSTIPATION-complicated by nausea and vomiting with poor oral intake, as well as persistent left lower quadrant abdominal pain. Evaluation today with CT scan and barium enema shows significant retained stool, no evidence of obvious obstruction. -IV fluids for hydration -Clear liquid diet, n.p.o. after midnight -Nausea and pain medication as needed -Fleet enema -Colonoscopy prep -Consult Dr. Hawkins for surgical opinion and possible colonoscopy in a.m. HYPERTENSION-history of hypertension and blood pressure has been significantly elevated in the emergency department -Continue outpatient medical therapy -Labetalol 10 mg every 4 hours as needed MAINTENANCE ISSUES -DVT prophylaxis; SCUDs -GI prophylaxis; continue outpatient PPI therapy -Butler catheter; not indicated -Nutrition; clear liquid diet, n.p.o. after midnight -Nicotine dependence; not required CODE STATUS-FULL CODE ADMISSION STATUS-this patient will be admitted to observation status, expect no more than a one night hospital stay for evaluation and management of problems as outlined above. DISPOSITION-anticipate discharge to home after the hospital stay. PRIMARY CARE PROVIDER-Nelda Byrd - Mortality Measure Prognosis:: Good
[2021-01-09] MEDS ORDERED: Ondansetron 4 MG/2 ML SDV IV PRN (16:43)
[2021-01-09] MEDS ORDERED: Labetalol 20 MG/4 ML Syringe IVPUSH PRN (16:43)
[2021-01-09] MEDS ORDERED: oxyCODONE 5 MG Tab PO PRN (16:43)
[2021-01-09] MEDS ORDERED: HYDROmorphone 0.5 MG/0.5 ML Syringe IVPUSH PRN (16:43)
[2021-01-09] MEDS ORDERED: Sodium Chloride 0.9% 10 ML Syringe FLUSH PRN (16:43)
[2021-01-09] MEDS: Hydrochlorothiazide 12.5 MG Cap PO SCH (17:10)
[2021-01-09] MEDS: Sodium Chloride 0.9% 1,000 ML IV SCH (17:24)
[2021-01-09] MEDS ORDERED: Sodium Phosphate,Monobasic/Sodium Phosphate,Dibasic Enema 133 ML Bottle RECTAL ONE (17:30)
[2021-01-09] MEDS ORDERED: Bisacodyl 5 MG Tab PO ONE ×2 (17:30→21:00)
[2021-01-09] MEDS ORDERED: Polyethylene Glycol 3350 Powder 238 GM Bot PO ONE (18:00)
[2021-01-09] MEDS: Acetaminophen 325 MG Tab PO PRN (22:55)
[2021-01-10] MEDS: Sodium Chloride 0.9% 1,000 ML IV SCH ×3 (01:33→14:17)
[2021-01-10] MEDS: Hydrochlorothiazide 12.5 MG Cap PO SCH (08:57)
[2021-01-10] MEDS: Pantoprazole 40 MG Tab.CR PO SCH (08:57)
[2021-01-10] MEDS: Polyethylene Glycol 3350 Powder 119 GM Bottle PO SCH ×2 (08:57→16:58)
[2021-01-10] MEDS: Venlafaxine 37.5 MG Cap.ER PO SCH (08:57)
[2021-01-10] MEDS: Acetaminophen 325 MG Tab PO PRN ×2 (08:58→14:20)
--- NOTE | 2021-01-10 08:59 | PCM.CONS ---
H&P History of Present Illness - General Date of Service: 01/10/21 Admit Problem/Dx: Admission Diagnosis/Problem Source of Information: Patient History Limitations: Reports: No Limitations - History of Present Illness Initial Comments - Free Text/Narative: Tammy states she has a history or constipation but it has gotten worse the past 2 weeks. At home she has tried Miralax and every other over the counter medication for constipation that she can think of with no relief. With left lower quadrant abdominal pain and left back pain that she states got unbearable she went in to the ED. Location: Reports: Abdomen, Back Quality: Reports: Pressure, Throbbing Severity: Mild Improves with: Reports: None Worsens with: Reports: None Associated Symptoms: Reports: Loss of Appetite Other HPI/Comments: Constipation Abdominal Pain Score (Numeric/FACES): 3 - Related Data Allergies/Adverse Reactions: Allergies Allergy/AdvReac Type Severity Reaction Status Date / Time No Known Allergies Allergy Verified 01/09/21 08:50 Home Medications: Home Meds Pantoprazole Sodium 40 mg PO DAILY 06/15/13 [History] Venlafaxine HCl [Venlafaxine ER] 37.5 mg PO DAILY 06/15/13 [History] hydroCHLOROthiazide [Hydrochlorothiazide] 12.5 mg PO DAILY 11/18/17 [History] Past Medical History HEENT History: Reports: None Cardiovascular History: Reports: Hypertension Respiratory History: Reports: None Gastrointestinal History: Reports: None, GERD, PUD Genitourinary History: Reports: Renal Calculus 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: Musculoskeletal History: Reports: Back Pain, Chronic Neurological History: Reports: None Psychiatric History: Reports: None Endocrine/Metabolic History: Reports: None Hematologic History: Reports: None Immunologic History: Reports: None Oncologic (Cancer) History: Reports: None Dermatologic History: Reports: None - Infectious Disease History Infectious Disease History: Reports: Chicken Pox - Past Surgical History HEENT Surgical History: Reports: None GI Surgical History: Reports: Appendectomy Other GI Surgeries/Procedures: rupured ulcer Female Surgical History: Reports: None Social & Family History - Family History Family Medical History: No Pertinent Family History - Tobacco Use Tobacco Use Status *Q: Never Tobacco User Second Hand Smoke Exposure: No - Caffeine Use Caffeine Use: Reports: None - Alcohol Use Days Per Week of Alcohol Use: 3 Number of Drinks Per Day: 1 Total Drinks Per Week: 3 Date of Last Drink: 01/05/21 Time of Last Drink: 21:00 - Recreational Drug Use Recreational Drug Use: No H&P Review of Systems - Review of Systems: Review Of Systems: Comprehensive ROS is negative, except as noted in HPI. Exam - Exam Exam: See Below - Vital Signs Vital Signs: Last Vital Signs Temp 98.6 F 01/10/21 08:51 Pulse 86 01/10/21 08:51 Resp 16 01/10/21 08:51 BP 160/101 H 01/10/21 08:51 Pulse Ox 100 01/10/21 08:51 Weight: 118 lb 12.8 oz - Exam Quality Assessment: DVT Prophylaxis General: Alert, Oriented, Cooperative HEENT: PERRLA, Conjunctiva Clear Neck: Supple, Trachea Midline Lungs: Clear to Auscultation, Normal Respiratory Effort Cardiovascular: Regular Rate, Regular Rhythm GI/Abdominal Exam: Soft, Distended, Tender (in left upper and mid abdominal quadrant) (Female) Exam: Deferred Rectal (Female) Exam: Deferred Back Exam: Normal Inspection, Full Range of Motion Extremities: Normal Range of Motion Skin: Warm, Dry, Intact Neurological: Cranial Nerves Intact Neuro Extensive - Mental Status: Alert, Oriented x3, Normal Mood/Affect Neuro Extensive - Motor, Sensory, Reflexes: CN II-XII Intact Psychiatric: Alert, Normal Affect, Normal Mood - Patient Data Lab Results Last 24 hrs: Laboratory Results - last 24 hr 01/09/21 01/09/21 01/09/21 Range/Units 09:23 09:23 09:23 WBC 3.2 L (4.5-11.0) K/uL RBC 4.59 (3.30-5.50) M/uL Hgb 12.3 (12.0-15.0) g/dL Hct 37.3 (36.0-48.0) % MCV 81 (80-98) fL MCH 27 (27-31) pg MCHC 33 (32-36) % Plt Count 333 (150-400) K/uL Neut % (Auto) 52 (36-66) % Lymph % (Auto) 32 (24-44) % [place] % (Auto) 14 H (2-6) % Eos % (Auto) 1 L (2-4) % Baso % (Auto) 1 (0-1) % Sodium 127 L (140-148) mmol/L Potassium 3.9 (3.6-5.2) mmol/L Chloride 89 L (100-108) mmol/L Carbon Dioxide 27 (21-32) mmol/L Anion Gap 14.9 H (5.0-14.0) mmol/L BUN 9 (7-18) mg/dL Creatinine 0.7 (0.6-1.0) mg/dL Est Cr Clr Drug Dosing 72.72 mL/min Estimated GFR (MDRD) > 60 (>60) Glucose 106 (74-106) mg/dL Lactic Acid 0.9 (0.4-2.0) mmol/L Calcium 9.0 (8.5-10.1) mg/dL Total Bilirubin 0.6 (0.2-1.0) mg/dL AST 23 (15-37) U/L ALT 30 (12-78) U/L Alkaline Phosphatase 73 (46-116) U/L Total Protein 7.5 (6.4-8.2) g/dL Albumin 4.1 (3.4-5.0) g/dL Globulin 3.4 (2.3-3.5) g/dL Albumin/Globulin Ratio 1.2 (1.2-2.2) Urine Color (YELLOW) Urine Appearance (CLEAR) Urine pH (5.0-8.0) Ur Specific [place] (1.008-1.030) Urine Protein (NEGATIVE) mg/dL Urine Glucose (UA) (NEGATIVE) mg/dL Urine Ketones (NEGATIVE) mg/dL Urine Occult Blood (NEGATIVE) Urine Nitrite (NEGATIVE) Urine Bilirubin (NEGATIVE) Urine Urobilinogen (0.2-1.0) EU/dL Ur Leukocyte Esterase (NEGATIVE) Urine RBC (0-5) Urine WBC (0-5) Ur Epithelial Cells Amorphous Sediment Urine Bacteria Urine Mucus 01/09/21 01/10/21 Range/Units 09:35 04:35 WBC (4.5-11.0) K/uL RBC (3.30-5.50) M/uL Hgb (12.0-15.0) g/dL Hct (36.0-48.0) % MCV (80-98) fL MCH (27-31) pg MCHC (32-36) % Plt Count (150-400) K/uL Neut % (Auto) (36-66) % Lymph % (Auto) (24-44) % [place] % (Auto) (2-6) % Eos % (Auto) (2-4) % Baso % (Auto) (0-1) % Sodium 136 L (140-148) mmol/L Potassium 3.5 L (3.6-5.2) mmol/L Chloride 99 L (100-108) mmol/L Carbon Dioxide 25 (21-32) mmol/L Anion Gap 15.5 H (5.0-14.0) mmol/L BUN 5 L (7-18) mg/dL Creatinine 0.8 (0.6-1.0) mg/dL Est Cr Clr Drug Dosing 63.62 mL/min Estimated GFR (MDRD) > 60 (>60) Glucose 82 (74-106) mg/dL Lactic Acid (0.4-2.0) mmol/L Calcium 8.6 (8.5-10.1) mg/dL Total Bilirubin (0.2-1.0) mg/dL AST (15-37) U/L ALT (12-78) U/L Alkaline Phosphatase (46-116) U/L Total Protein (6.4-8.2) g/dL Albumin (3.4-5.0) g/dL Globulin (2.3-3.5) g/dL Albumin/Globulin Ratio (1.2-2.2) Urine Color Yellow (YELLOW) Urine Appearance Clear (CLEAR) Urine pH 6.0 (5.0-8.0) Ur Specific [place] 1.020 (1.008-1.030) Urine Protein Negative (NEGATIVE) mg/dL Urine Glucose (UA) Negative (NEGATIVE) mg/dL Urine Ketones 15 H (NEGATIVE) mg/dL Urine Occult Blood Negative (NEGATIVE) Urine Nitrite Negative (NEGATIVE) Urine Bilirubin Small H (NEGATIVE) Urine Urobilinogen 0.2 (0.2-1.0) EU/dL Ur Leukocyte Esterase Trace H (NEGATIVE) Urine RBC 0-5 (0-5) Urine WBC 0-5 (0-5) Ur Epithelial Cells Rare Amorphous Sediment Not seen Urine Bacteria Rare Urine Mucus Not seen Result Diagrams: 01/09/21 09:23 01/10/21 04:35 Sepsis Event Note - Evaluation Sepsis Screening Result: No Definite Risk - Focused Exam Vital Signs: Vital Signs Temp Pulse Resp BP Pulse Ox 01/10/21 08:51 98.6 F 86 16 160/101 H 100 01/10/21 03:00 99.1 F 81 16 150/94 H 96 01/09/21 22:53 99.6 F 80 16 160/96 H 97 Consult PN Assessment/Plan Procedures: Procedures ASSAY OF LACTIC ACID (12/30/20) ASSAY OF LIPASE (12/30/20) BLOOD TYPING SEROLOGIC ABO (12/24/17) BLOOD TYPING SEROLOGIC RH(D) (12/24/17) COMPLETE CBC W/AUTO DIFF WBC (12/30/20) COMPREHEN METABOLIC PANEL (12/30/20) CT ABD & PELV 1/> REGNS (12/30/20) CT ABD & PELVIS W/O CONTRAST (12/30/20) CULTURE OTHR SPECIMN AEROBIC (12/24/17) EMERGENCY DEPT VISIT (12/30/20) HYDRATE IV INFUSION ADD-ON (06/15/13) MANUAL THERAPY 1/> REGIONS (02/11/18) MRI LUMBAR SPINE W/O DYE (11/16/17) MRI LWR EXTREMITY W/O&W/DYE (02/02/15) NEUROMUSCULAR REEDUCATION (02/11/18) NJX INTERLAMINAR LMBR/SAC (12/02/17) ORTHOTIC MGMT&TRAING 1ST ENC (12/24/17) PT EVAL MOD COMPLEX 30 MIN (01/27/18) RBC ANTIBODY SCREEN (12/24/17) ROUTINE VENIPUNCTURE (12/30/20) SCR MAMMO BI INCL CAD (10/19/17) SELF CARE MNGMENT TRAINING (12/24/17) THER/PROPH/DIAG INJ IV PUSH (12/30/20) TX/PRO/DX INJ NEW DRUG ADDON (12/30/20) TX/PRO/DX INJ SAME DRUG MANOMETER TECHNICIAN (12/30/20) ULTRASOUND THERAPY (02/11/18) URINALYSIS AUTO W/SCOPE (12/30/20) X-RAY EXAM L-2 SPINE 4/>VWS (12/24/17) (1) Constipation SNOMED Code(s): 40172862 Code(s): K59.00 - CONSTIPATION, UNSPECIFIED Current Visit: Yes Qualifiers: Constipation type: other constipation type Qualified Code(s): K59.09 - Other constipation Problem List Initiated/Reviewed/Updated: Yes My Orders Last 24 Hours: My Active Orders 01/10/21 07:50 Communication Order [RC] ASDIRECTED 01/10/21 07:51 Consult to Dietary [Consult to Continuous Vulcanizing Machine Operator] [CONS] Routine for Ensure Clear qid 01/10/21 Breakfast Clear Liquid Diet [DIET] 01/10/21 09:00 polyethylene glycoL 3350 [MiraLAX] 119 gm PO BID@0900,1600 01/10/21 Dinner NPO After Midnight [Nothing per Oral After Midnight Diet] [DIET] THank you for this consultation. Chasity CRAWFORD C
[2021-01-10] MEDS ORDERED: Potassium Chloride 20 MEQ Tab.ER PO ONE ×2 (09:00→17:00)
--- NOTE | 2021-01-10 09:15 | CR ---
Abdomen 2V AP Upright Decub CLINICAL HISTORY: Constipation FINDINGS: There is some gaseous distention of colon. There appears to be decrease in the amount of stool. There is some residual contrast in the left colon and sigmoid IMPRESSION: Mild gaseous distention of colon Decrease in stool since prior day
--- NOTE | 2021-01-10 12:57 | PCM.PN ---
- General Info Date of Service: 01/10/21 Subjective Update: Ms. Rodriguez has remained stable since admission and has had several bowel movements. She was still passing stool this morning, further laxatives have been ordered by the surgical service with the plan to proceed with colonoscopy in a.m. Pain seems to be improved and she is no longer experiencing nausea and vomiting. Functional Status: Reports: Tolerating Diet, Ambulating, Urinating - Review of Systems General: Reports: Weakness, Fatigue. Denies: Fever, Chills Pulmonary: Reports: No Symptoms Cardiovascular: Reports: No Symptoms Gastrointestinal: Reports: Abdominal Pain, Constipation, Decreased Appetite. Denies: Difficulty Swallowing, Hematochezia, Melena, Nausea, Vomiting Genitourinary: Reports: No Symptoms - Patient Data Vitals - Most Recent: Last Vital Signs Temp 98.6 F 01/10/21 08:51 Pulse 86 01/10/21 08:51 Resp 16 01/10/21 08:51 BP 160/101 H 01/10/21 08:51 Pulse Ox 100 01/10/21 08:51 Weight - Most Recent: 118 lb 12.808 oz I&O - Last 24 Hours: Intake & Output 01/09/21 01/10/21 01/10/21 22:59 06:59 14:59 Intake Total 1240 600 Balance 1240 600 Lab Results Last 24 Hours: Laboratory Results - last 24 hr 01/10/21 Range/Units 04:35 Sodium 136 L (140-148) mmol/L Potassium 3.5 L (3.6-5.2) mmol/L Chloride 99 L (100-108) mmol/L Carbon Dioxide 25 (21-32) mmol/L Anion Gap 15.5 H (5.0-14.0) mmol/L BUN 5 L (7-18) mg/dL Creatinine 0.8 (0.6-1.0) mg/dL Est Cr Clr Drug Dosing 63.62 mL/min Estimated GFR (MDRD) > 60 (>60) Glucose 82 (74-106) mg/dL Calcium 8.6 (8.5-10.1) mg/dL Med Orders - Current: Current Medications Acetaminophen (Acetaminophen 325 Mg Tab) 650 mg PO Q4H PRN PRN Reason: Pain (Mild 1-3)/fever Last Admin: 01/10/21 08:58 Dose: 650 mg Documented by: Hydrochlorothiazide (Hydrochlorothiazide 12.5 Mg Cap) 12.[address] [facility] Last Admin: 01/10/21 08:57 Dose: 12.5 mg Documented by: Hydromorphone HCl (Hydromorphone 0.5 Mg/0.5 Ml Syringe) 0.5 mg IVPUSH Q2H PRN PRN Reason: Pain (severe 7-10) Sodium Chloride (Normal Saline) 1,000 mls @ 75 mls/hr IV ASDIRECTED [facility] Labetalol HCl (Labetalol 20 Mg/4 Ml Syringe) 10 mg IVPUSH Q4H PRN; Protocol PRN Reason: Hypertension Ondansetron HCl (Ondansetron 4 Mg/2 Ml Sdv) 4 mg IV Q4H PRN PRN Reason: Nausea/Vomiting Oxycodone HCl (Oxycodone 5 Mg Tab) 5 mg PO Q4H PRN PRN Reason: Pain (moderate 4-6) Pantoprazole Sodium (Pantoprazole 40 Mg Tab.Cr) 40 mg PO DAILY@0730 [facility] Last Admin: 01/10/21 08:57 Dose: 40 mg Documented by: Polyethylene Glycol (Polyethylene Glycol 3350 Powder 119 Gm Bottle) 119 gm PO BID@0900,1600 [facility] Stop: 01/10/21 16:01 Last Admin: 01/10/21 08:57 Dose: 119 gm Documented by: Potassium Chloride (Potassium Chloride 20 Meq Tab.Er) 40 meq PO ONETIME ONE Stop: 01/10/21 17:01 Sodium Chloride (Sodium Chloride 0.9% 10 Ml Syringe) 10 ml FLUSH ASDIRECTED PRN PRN Reason: Keep Vein Open Venlafaxine HCl (Venlafaxine 37.5 Mg Cap.Er) 37.[address] [facility] Last Admin: 01/10/21 08:57 Dose: 37.5 mg Documented by: Discontinued Medications Bisacodyl (Bisacodyl 5 Mg Tab) 10 mg PO ONETIME ONE Stop: 01/09/21 17:31 Last Admin: 01/09/21 17:10 Dose: 10 mg Documented by: Bisacodyl (Bisacodyl 5 Mg Tab) 10 mg PO ONETIME ONE Stop: 01/09/21 21:01 Last Admin: 01/09/21 20:41 Dose: 10 mg Documented by: Diatrizoate Meglum/Diatrizoate Sod (Diatrizoate Meglumine/Diatrizoate Sodium 37% 120 Ml Bottle) 1,200 ml PO . DIRECTED PRN PRN Reason: RADIOLOGY EXAM Last Admin: 01/09/21 14:13 Dose: 1,200 ml Documented by: Fentanyl (Fentanyl 100 Mcg/2 Ml Sdv) 50 mcg IVPUSH ONETIME ONE Stop: 01/09/21 11:14 Last Admin: 01/09/21 11:19 Dose: 50 mcg Documented by: Fentanyl (Fentanyl 100 Mcg/2 Ml Sdv) 50 mcg IVPUSH ONETIME ONE Stop: 01/09/21 14:39 Last Admin: 01/09/21 14:48 Dose: 50 mcg Documented by: Sodium Chloride (Normal Saline) 1,000 mls @ 1,000 mls/hr IV .BOLUS ONE Stop: 01/09/21 10:04 Last Admin: 01/09/21 09:46 Dose: 1,000 mls/hr Documented by: Sodium Chloride (Normal Saline) 70 mls @ 3 mls/sec IV ASDIRECTED [facility] Stop: 01/09/21 11:45 Last Admin: 01/09/21 11:31 Dose: 3 mls/sec Documented by: Sodium Chloride (Normal Saline) 1,000 mls @ 125 mls/hr IV ASDIRECTED [facility] Last Admin: 01/10/21 09:06 Dose: 125 mls/hr Documented by: Iopamidol (Iopamidol 612 Mg/Ml 500 Ml Multipack Bottle) 81 ml IV ONETIME ONE Stop: 01/09/21 11:17 Last Admin: 01/09/21 11:32 Dose: 81 ml Documented by: Labetalol HCl (Labetalol 20 Mg/4 Ml Syringe) 10 mg IVPUSH NOW ONE; Protocol Stop: 01/09/21 12:11 Last Admin: 01/09/21 12:32 Dose: 10 mg Documented by: Ondansetron HCl (Ondansetron 4 Mg/2 Ml Sdv) 4 mg IVPUSH ONETIME ONE Stop: 01/09/21 09:06 Last Admin: 01/09/21 09:47 Dose: 4 mg Documented by: Polyethylene Glycol (Polyethylene Glycol 3350 Powder 238 Gm Bot) 238 gm PO ONETIME ONE Stop: 01/09/21 18:01 Last Admin: 01/09/21 17:18 Dose: 238 gm Documented by: Potassium Chloride (Potassium Chloride 20 Meq Tab.Er) 40 meq PO ONETIME ONE Stop: 01/10/21 09:01 Last Admin: 01/10/21 09:00 Dose: 40 meq Documented by: Sodium Biphosphate/Sodium Phosphate (Sodium Phosphate,Monobasic/Sodium Phospha te,Dibasic Enema 133 Ml Bottle) 133 ml RECTAL ONETIME ONE Stop: 01/09/21 17:31 Last Admin: 01/09/21 17:17 Dose: 133 ml Documented by: Sodium Chloride (Sodium Chloride 0.9% 10 Ml Syringe) 10 ml FLUSH ONETIME ONE Stop: 01/09/21 11:17 Last Admin: 01/09/21 12:08 Dose: 10 ml Documented by: - Exam Quality Assessment: DVT Prophylaxis General: Alert, Oriented, Cooperative, Mild Distress Lungs: Clear to Auscultation, Normal Respiratory Effort Cardiovascular: Regular Rate, Regular Rhythm, No Murmurs GI/Abdominal Exam: Soft, No Organomegaly, Distended, Tender. No: Guarding, Rigid, Rebound Extremities: Non-Tender, No Pedal Edema - Patient Data Lab Results Last 24 hrs: Laboratory Results - last 24 hr 01/10/21 Range/Units 04:35 Sodium 136 L (140-148) mmol/L Potassium 3.5 L (3.6-5.2) mmol/L Chloride 99 L (100-108) mmol/L Carbon Dioxide 25 (21-32) mmol/L Anion Gap 15.5 H (5.0-14.0) mmol/L BUN 5 L (7-18) mg/dL Creatinine 0.8 (0.6-1.0) mg/dL Est Cr Clr Drug Dosing 63.62 mL/min Estimated GFR (MDRD) > 60 (>60) Glucose 82 (74-106) mg/dL Calcium 8.6 (8.5-10.1) mg/dL Result Diagrams: 01/09/21 09:23 01/10/21 04:35 Sepsis Event Note - Evaluation Sepsis Screening Result: No Definite Risk - Focused Exam Vital Signs: Vital Signs Temp Pulse Resp BP Pulse Ox 01/10/21 08:51 98.6 F 86 16 160/101 H 100 01/10/21 03:00 99.1 F 81 16 150/94 H 96 - Problem List Review Problem List Initiated/Reviewed/Updated: Yes - My Orders Last 24 Hours: My Active Orders 01/09/21 16:21 Resuscitation Status Routine 01/09/21 16:43 Acetaminophen [TylenoL] 650 mg PO Q4H PRN HYDROmorphone [Dilaudid] 0.5 mg IVPUSH Q2H PRN Labetalol [Normodyne] 10 mg IVPUSH Q4H PRN Ondansetron [Zofran] 4 mg IV Q4H PRN Sodium Chloride 0.9% [Saline Flush] 10 ml FLUSH ASDIRECTED PRN hydroCHLOROthiazide 12.5 mg PO DAILY oxyCODONE 5 mg PO Q4H PRN 01/09/21 16:43 Patient Status [ADT] Routine Ambulate [RC] QID Height and Weight [RC] DAILY Intake and Output [RC] QSHIFT Notify Provider Consults [RC] ASDIRECTED Notify Provider Vital Signs [RC] ASDIRECTED Oxygen Therapy [RC] PRN Peripheral IV Care [RC] . DIRECTED Up ad Jumana [RC] ASDIRECTED Up to Chair [RC] QID VTE/DVT Education [RC] Per Unit Routine Verify Patient Consent Obtain [RC] ASDIRECTED Vital Signs [RC] Q4H Consult to Physician [CONS] Routine Peripheral IV Insertion Adult [OM.PC] Routine Schedule Procedure [COMM] Routine Sequential Compression Device [OM.PC] Per Unit Routine 01/10/21 07:30 Pantoprazole [ProTONIX] 40 mg PO DAILY@0730 01/10/21 09:00 Venlafaxine [Effexor XR] 37.5 mg PO DAILY 01/10/21 13:00 Sodium Chloride 0.9% @ 75 MLS/HR(1000ml) Sodium Chloride 0.9% [Normal Saline] 1,000 ml IV ASDIRECTED 01/10/21 17:00 Potassium Chloride [Klor-Con M20] 40 meq PO ONETIME ONE 01/11/21 05:00 BASIC METABOLIC PANEL,BMP [CHEM] Timed - Plan Plan:: ASSESSMENT AND PLAN SEVERE CONSTIPATION-complicated by nausea and vomiting with poor oral intake, as well as persistent left lower quadrant abdominal pain. Good output of stool since admission, still not yet clear. -IV fluids for hydration -Clear liquid diet, n.p.o. after midnight -Nausea and pain medication as needed -Further laxatives as ordered by Dr. Hawkins -Consult Dr. Hawkins for surgical opinion and possible colonoscopy in a.m. HYPERTENSION-history of hypertension and blood pressure has been significantly elevated in the emergency department -Continue outpatient medical therapy -Labetalol 10 mg every 4 hours as needed MAINTENANCE ISSUES -DVT prophylaxis; SCUDs -GI prophylaxis; continue outpatient PPI therapy -Butler catheter; not indicated -Nutrition; clear liquid diet, n.p.o. after midnight -Nicotine dependence; not required CODE STATUS-FULL CODE ADMISSION STATUS-this patient will be admitted to observation status, expect no more than a one night hospital stay for evaluation and management of problems as outlined above. DISPOSITION-anticipate discharge to home after the hospital stay. PRIMARY CARE PROVIDER-Nelda Byrd
[2021-01-10] MEDS ORDERED: Polyethylene Glycol 3350 Powder 238 GM Bot PO ONE (21:04)
[2021-01-10] MEDS: Polyethylene Glycol 3350 Powder 238 GM Bot PO ONE (23:12)
[2021-01-11] MEDS: Polyethylene Glycol 3350 Powder 238 GM Bot PO ONE (00:08)
[2021-01-11] MEDS: Sodium Chloride 0.9% 1,000 ML IV SCH (00:13)
[2021-01-11] MEDS: Pantoprazole 40 MG Tab.CR PO SCH ×2 (07:22→09:42)
[2021-01-11] MEDS ORDERED: Propofol 200 MG/20 ML SDV ONE (07:26)
[2021-01-11] MEDS ORDERED: Midazolam 1 MG/ML 2 ML SDV ONE (07:26)
[2021-01-11] MEDS ORDERED: fentaNYL 100 MCG/2 ML SDV ONE (07:26)
[2021-01-11] MEDS ORDERED: Lubiprostone 24 MCG Cap PO SCH (08:00)
[2021-01-11 08:47] VITALS: PULSE 93
[2021-01-11] MEDS: Hydrochlorothiazide 12.5 MG Cap PO SCH (09:41)
[2021-01-11] MEDS: Venlafaxine 37.5 MG Cap.ER PO SCH (09:41)
[2021-01-11 10:37] VITALS: BP 174/108
--- NOTE | 2021-01-11 10:41 | PCM.DCSUM1 ---
Discharge Summary - Hospital Course Brief History: Ms. Rodriguez is a 60-year-old woman who was admitted to observation status through the emergency department with nausea, vomiting, abdominal pain, secondary to constipation. - Discharge Data Discharge Date: 01/11/21 Discharge Disposition: Home, Self-Care 01 Condition: Stable - Referral to Home Health Primary Care Physician: YVETTE Mendoza - Discharge Diagnosis/Problem(s) (1) Obstipation SNOMED Code(s): 208723541 ICD Code: K59.00 - CONSTIPATION, UNSPECIFIED Status: Acute Current Visit: Yes (2) Nausea and vomiting SNOMED Code(s): 48594682 ICD Code: R11.2 - NAUSEA WITH VOMITING, UNSPECIFIED Status: Acute Current Visit: No Qualifiers: Vomiting type: unspecified Vomiting Intractability: non-intractable Qualified Code(s): R11.2 - Nausea with vomiting, unspecified (3) Abdominal pain SNOMED Code(s): 07473378 ICD Code: R10.9 - UNSPECIFIED ABDOMINAL PAIN Status: Acute Current Visit: Yes Qualifiers: Abdominal location: left lower quadrant Qualified Code(s): R10.32 - Left lower quadrant pain - Patient Summary/Data Consults: Consultations 01/09/21 16:43 Consult to Physician [CONS] Routine Consulting Provider: David Hawkins Call Completed to Consulting Physician: Yes Reason for Consult: Constipation, abdominal pain 01/11/21 09:16 Consult to Dietary [Consult to Table Maker] [CONS] Routine Comment: Physician Instructions: Quantity: Special Instructions: high fiber diet Hospital Course: Ms. Rodriguez is a 60-year-old woman who was admitted through the emergency department observation status with left lower quadrant abdominal pain, nausea and vomiting, secondary to severe constipation and probable underlying colon dysfunction. She has had a lifelong history of constipation. This has become much worse over the past 3 weeks, during this period of time has had only minimal stool output. She has been seen previously in the emergency department and at that time CT scan did document significant stool retention and some enlargement of the colon. She has tried several things at home including multiple cathartics with no significant improvement. She has experienced increased left lower quadrant abdominal pain as well as nausea vomiting with very poor oral intake. CT scan of the abdomen pelvis was repeated today and again shows significant amount of retained stool with some enlargement of the colon. Barium enema was also performed showing no obvious obstruction. On admission she was given IV fluids for hydration as well as a colonoscopy prep. She did have several bowel movements during the night but was still passing stool in the morning. Further laxatives were ordered and on the morning of discharge colonoscopy was performed which showed a large dilated colon. She was started on Amitiza twice a day and will be on a high-fiber diet. Activity will be as tolerated. Follow-up appointment will be scheduled with her primary care provider within 1 week. - Patient Instructions Diet, Other: High-fiber diet Activity: As Tolerated Other/Special Instructions: Please schedule follow-up appointment with primary care provider within 1 week. - Discharge Plan *PRESCRIPTION DRUG MONITORING PROGRAM REVIEWED*: Not Applicable *COPY OF PRESCRIPTION DRUG MONITORING REPORT IN PATIENT WING: Not Applicable Prescriptions/Med Rec: Lubiprostone [Amitiza] 24 mcg PO BIDMEALS #60 cap Home Medications: Home Meds Pantoprazole Sodium 40 mg PO DAILY 06/15/13 [History] Venlafaxine HCl [Venlafaxine ER] 37.5 mg PO DAILY 06/15/13 [History] hydroCHLOROthiazide [Hydrochlorothiazide] 12.5 mg PO DAILY 11/18/17 [History] Lubiprostone [Amitiza] 24 mcg PO BIDMEALS #60 cap 01/11/21 [Rx] Patient Handouts: Chronic Constipation Referrals: Anne Byrd PA [Primary Care Provider] - - Discharge Summary/Plan Comment DC Time >30 min.: No - Patient Data Vitals - Most Recent: Last Vital Signs Temp 98.4 F 01/11/21 09:00 Pulse 93 01/11/21 08:46 Resp 16 01/11/21 10:00 BP 174/108 H 01/11/21 10:37 Pulse Ox 98 01/11/21 10:00 Weight - Most Recent: 118 lb 12.808 oz I&O - Last 24 hours: Intake & Output 01/10/21 01/11/21 01/11/21 22:59 06:59 14:59 Intake Total 1500 1000 Balance 1500 1000 Lab Results - Last 24 hrs: Laboratory Results - last 24 hr 01/11/21 Range/Units 04:38 Sodium 139 L (140-148) mmol/L Potassium 3.8 (3.6-5.2) mmol/L Chloride 103 (100-108) mmol/L Carbon Dioxide 24 (21-32) mmol/L Anion Gap 15.8 H (5.0-14.0) mmol/L BUN 2 L D (7-18) mg/dL Creatinine 0.6 (0.6-1.0) mg/dL Est Cr Clr Drug Dosing 84.82 mL/min Estimated GFR (MDRD) > 60 (>60) Glucose 109 H (74-106) mg/dL Calcium 9.0 (8.5-10.1) mg/dL Med Orders - Current: Current Medications Acetaminophen (Acetaminophen 325 Mg Tab) 650 mg PO Q4H PRN PRN Reason: Pain (Mild 1-3)/fever Last Admin: 01/10/21 14:20 Dose: 650 mg Documented by: Hydrochlorothiazide (Hydrochlorothiazide 12.5 Mg Cap) 12.5 mg PO DAILY [facility] Last Admin: 01/11/21 09:41 Dose: 12.5 mg Documented by: Hydromorphone HCl (Hydromorphone 0.5 Mg/0.5 Ml Syringe) 0.5 mg IVPUSH Q2H PRN PRN Reason: Pain (severe 7-10) Sodium Chloride (Normal Saline) 1,000 mls @ 75 mls/hr IV ASDIRECTED [facility] Last Admin: 01/11/21 00:13 Dose: 75 mls/hr Documented by: Labetalol HCl (Labetalol 20 Mg/4 Ml Syringe) 10 mg IVPUSH Q4H PRN; Protocol PRN Reason: Hypertension Lubiprostone (Lubiprostone 24 Mcg Cap) 24 mcg PO BIDMEALS [facility] Last Admin: 01/11/21 09:41 Dose: 24 mcg Documented by: Ondansetron HCl (Ondansetron 4 Mg/2 Ml Sdv) 4 mg IV Q4H PRN PRN Reason: Nausea/Vomiting Oxycodone HCl (Oxycodone 5 Mg Tab) 5 mg PO Q4H PRN PRN Reason: Pain (moderate 4-6) Pantoprazole Sodium (Pantoprazole 40 Mg Tab.Cr) 40 mg PO DAILY@0730 [facility] Last Admin: 01/11/21 09:42 Dose: 40 mg Documented by: Senna/Docusate Sodium (Docusate Sodium/Sennosides 50-8.6 Mg Tab) 2 tab PO BID [facility] Last Admin: 01/11/21 09:41 Dose: Not Given Documented by: Sodium Chloride (Sodium Chloride 0.9% 10 Ml Syringe) 10 ml FLUSH ASDIRECTED PRN PRN Reason: Keep Vein Open Venlafaxine HCl (Venlafaxine 37.5 Mg Cap.Er) 37.5 mg PO DAILY [facility] Last Admin: 01/11/21 09:41 Dose: 37.5 mg Documented by: Discontinued Medications Bisacodyl (Bisacodyl 5 Mg Tab) 10 mg PO ONETIME ONE Stop: 01/09/21 17:31 Last Admin: 01/09/21 17:10 Dose: 10 mg Documented by: Bisacodyl (Bisacodyl 5 Mg Tab) 10 mg PO ONETIME ONE Stop: 01/09/21 21:01 Last Admin: 01/09/21 20:41 Dose: 10 mg Documented by: Diatrizoate Meglum/Diatrizoate Sod (Diatrizoate Meglumine/Diatrizoate Sodium 37% 120 Ml Bottle) 1,200 ml PO . DIRECTED PRN PRN Reason: RADIOLOGY EXAM Last Admin: 01/09/21 14:13 Dose: 1,200 ml Documented by: Fentanyl (Fentanyl 100 Mcg/2 Ml Sdv) 50 mcg IVPUSH ONETIME ONE Stop: 01/09/21 11:14 Last Admin: 01/09/21 11:19 Dose: 50 mcg Documented by: Fentanyl (Fentanyl 100 Mcg/2 Ml Sdv) 50 mcg IVPUSH ONETIME ONE Stop: 01/09/21 14:39 Last Admin: 01/09/21 14:48 Dose: 50 mcg Documented by: Fentanyl (Fentanyl 100 Mcg/2 Ml Sdv) Confirm Administered Dose 100 mcg .ROUTE .STK-MED ONE Stop: 01/11/21 07:27 Sodium Chloride (Normal Saline) 1,000 mls @ 1,000 mls/hr IV .BOLUS ONE Stop: 01/09/21 10:04 Last Admin: 01/09/21 09:46 Dose: 1,000 mls/hr Documented by: Sodium Chloride (Normal Saline) 70 mls @ 3 mls/sec IV ASDIRECTED [facility] Stop: 01/09/21 11:45 Last Admin: 01/09/21 11:31 Dose: 3 mls/sec Documented by: Sodium Chloride (Normal Saline) 1,000 mls @ 125 mls/hr IV ASDIRECTED [facility] Last Admin: 01/10/21 09:06 Dose: 125 mls/hr Documented by: Iopamidol (Iopamidol 612 Mg/Ml 500 Ml Multipack Bottle) 81 ml IV ONETIME ONE Stop: 01/09/21 11:17 Last Admin: 01/09/21 11:32 Dose: 81 ml Documented by: Labetalol HCl (Labetalol 20 Mg/4 Ml Syringe) 10 mg IVPUSH NOW ONE; Protocol Stop: 01/09/21 12:11 Last Admin: 01/09/21 12:32 Dose: 10 mg Documented by: Midazolam HCl (Midazolam 1 Mg/Ml 2 Ml Sdv) Confirm Administered Dose 2 mg .ROUTE .STK-MED ONE Stop: 01/11/21 07:27 Ondansetron HCl (Ondansetron 4 Mg/2 Ml Sdv) 4 mg IVPUSH ONETIME ONE Stop: 01/09/21 09:06 Last Admin: 01/09/21 09:47 Dose: 4 mg Documented by: Polyethylene Glycol (Polyethylene Glycol 3350 Powder 238 Gm Bot) 238 gm PO ONETIME ONE Stop: 01/09/21 18:01 Last Admin: 01/09/21 17:18 Dose: 238 gm Documented by: Polyethylene Glycol (Polyethylene Glycol 3350 Powder 119 Gm Bottle) 119 gm PO BID@0900,1600 [facility] Stop: 01/10/21 16:01 Last Admin: 01/10/21 16:58 Dose: 119 gm Documented by: Polyethylene Glycol (Polyethylene Glycol 3350 Powder 238 Gm Bot) 238 gm PO ONETIME ONE Stop: 01/10/21 21:05 Last Admin: 01/10/21 21:23 Dose: 238 gm Documented by: Polyethylene Glycol (Polyethylene Glycol 3350 Powder 238 Gm Bot) 238 gm PO ONETIME ONE Stop: 01/11/21 01:01 Last Admin: 01/11/21 00:08 Dose: Not Given Documented by: Potassium Chloride (Potassium Chloride 20 Meq Tab.Er) 40 meq PO ONETIME ONE Stop: 01/10/21 09:01 Last Admin: 01/10/21 09:00 Dose: 40 meq Documented by: Potassium Chloride (Potassium Chloride 20 Meq Tab.Er) 40 meq PO ONETIME ONE Stop: 01/10/21 17:01 Last Admin: 01/10/21 16:59 Dose: 40 meq Documented by: Propofol (Propofol 200 Mg/20 Ml Sdv) Confirm Administered Dose 200 mg .ROUTE .STK-MED ONE Stop: 01/11/21 07:27 Sodium Biphosphate/Sodium Phosphate (Sodium Phosphate,Monobasic/Sodium Phosphate,Dibasic Enema 133 Ml Bottle) 133 ml RECTAL ONETIME ONE Stop: 01/09/21 17:31 Last Admin: 01/09/21 17:17 Dose: 133 ml Documented by: Sodium Chloride (Sodium Chloride 0.9% 10 Ml Syringe) 10 ml FLUSH ONETIME ONE Stop: 01/09/21 11:17 Last Admin: 01/09/21 12:08 Dose: 10 ml Documented by: - Exam General: Reports: Alert, Oriented, Cooperative, No Acute Distress GI/Abdominal Exam: Soft, Non-Tender, No Organomegaly, No Distention
--- NOTE | 2021-01-11 11:25 | PN ---
DATE OF SERVICE: 01/11/2021 SUBJECTIVE: Tammy has had several doses of MiraLax. She is having brown-colored bowel movements which are mainly liquid. She is n.p.o. for a colonoscopy this morning. Oral intake 3100. Urine output not recorded due to multiple BMs for colon prep. Vital signs have been stable. REVIEW OF SYSTEMS: Negative for any pertinent positives and negatives. OBJECTIVE: GENERAL: Tammy Rodriguez is a pleasant 60-year-old female. She is alert and orientated. VITAL SIGNS: TPR 99, 84, 16, blood pressure 170/111. Prior to that, her blood pressure was 168/102. HEENT: Negative. NECK: Supple. HEART: Regular rate and rhythm. LUNGS: Clear. ABDOMEN: Soft, nontender. EXTREMITIES: Without peripheral edema. ASSESSMENT: Chronic constipation. PLAN: 1. After colonoscopy, start Amitiza 24 mcg b.i.d. This needed a prior authorization by her insurance company and it was approved and she will be going home with this. 2. Senna Plus 2 b.i.d. 3. We will evaluate p.r.n. or in a.m. Chasity Miller PA-C /[id number]
--- NOTE | 2021-01-22 16:37 | OR ---
DATE OF PROCEDURE: 01/11/2021 SURGEON: David Hawkins MD PREOPERATIVE DIAGNOSIS: Megacolon with inability to pass the colonoscope to the proximal transverse colon. OPERATIVE PROCEDURE: Flexible colonoscopy (to proximal transverse colon). ANESTHESIA: IV sedation. INDICATION FOR PROCEDURE: A 60-year-old female presenting with a picture of megacolon. She has had increasing problems with obstipation and was admitted. At the time of admission, the patient underwent a Gastrografin-based colon x-ray. This showed extreme megacolon, but otherwise no obvious mucosal abnormalities. The patient has now been working on a bowel prep for 2-1/2 days and has received several liters of GoLYTELY and Gatorade as part of the prep, and at this time has a reasonable bowel prep to proceed with the colonoscopy although this still is not entirely clear. The plan is to proceed with the colonoscopy with biopsies and/or polypectomy as indicated. Potential risks of the procedure including bleeding and perforation were discussed and the patient wishes to proceed. DETAILS OF PROCEDURE: The patient was taken to the operating room and placed in a left lateral decubitus position. IV sedation was administered, after which digital rectal exam was performed and was unremarkable. Colonoscope was passed into the rectum with retroflexion view revealing uncomplicated hemorrhoidal columns. The scope was eventually passed to what appeared to be the proximal transverse colon. At that point, we were out of scope length to provide a more proximal examination due to the patient's megacolon. Despite having several day prep of MiraLAX, the patient still had some both solid and liquid stool which in the examined areas obscured perhaps 20% of the surfaces. The scope was withdrawn, no specific additional abnormalities were noted and the procedure then concluded. At this point, the patient will be started on Amitiza twice a day, Senna Plus with 2 tablets of that with each dose and a high-fiber diet. She will be subsequently following up with Anne Byrd. If medical management fails in this case, the fallback surgical approach would be a subtotal colectomy with ileorectal anastomosis. We will follow the case informally with Anne Byrd over time in the post hospitalization phase. David Hawkins MD /[id number]
== END 2021-01-11 12:12 | disposition home or self-care (01) ==
LOC: JP.ED 08:32 → JP.MS 16:42 → UNDOADMOB 16:42 → JP.MS 16:43
PROVIDERS: ADMIT Hospitalist; ATTEND Hospitalist
DX: K59.39 Other megacolon (principal); K64.9 Unspecified hemorrhoids; K59.00 Constipation, unspecified; R11.2 Nausea with vomiting, unspecified; I10 Essential (primary) hypertension; K21.9 Gastro-esophageal reflux disease without esophagitis; Z79.899 Other long term (current) drug therapy; Z90.49 Acquired absence of other specified parts of digestive tract
CPT/HCPCS: 36415; 45378; 74021; 74177; 74270; 80048; 80053; 81001; 83605; 85025; 96374; 96375; 96376; 99217; 99219; 99225; 99285; A9270; G0378; J2250; J2405; J2704; J3010; J3490; J7030; Q9963; Q9967

== ENCOUNTER 2022-09-27 20:23 | Emergency (ER) | payer BC ==
[2022-09-27] MEDS ORDERED: Sodium Chloride 0.9% 10 ML Syringe FLUSH PRN (21:04)
[2022-09-27] MEDS ORDERED: Sodium Chloride 0.9% 1,000 ML IV ONE (21:04)
[2022-09-27] MEDS ORDERED: Ondansetron 4 MG/2 ML SDV IVPUSH ONE (21:12)
[2022-09-27 21:24] LABS: ESTIMATED GFR 72 mL/min (>60)
[2022-09-27] MEDS ORDERED: Potassium Chloride 20 MEQ Tab.ER PO ONE (21:39)
[2022-09-27] MEDS ORDERED: amLODIPine 5 MG Tab PO ONE (21:44)
[2022-09-27] MEDS ORDERED: Sodium Chloride 0.9% 1,000 ML IV SCH (21:45)
[2022-09-27] MEDS ORDERED: Sodium Chloride 0.9% 10 ML Syringe FLUSH ONE (21:49)
[2022-09-27] MEDS ORDERED: Iopamidol 612 MG/ML 100 ML Bottle IV SCH (22:00)
[2022-09-27] MEDS ORDERED: Sodium Chloride 0.9% 50 ML IV SCH (22:00)
[2022-09-27] MEDS: Potassium Chloride 10 MEQ in Premix Bag 1 BAG IV SCH ×2 (22:24→23:38)
[2022-09-27] MEDS ORDERED: Erythromycin Base 0.5% Ophth Oint 1 GM Tube EYEBOTH ONE (22:31)
[2022-09-27] MEDS ORDERED: Prochlorperazine 10 MG/2 ML SDV IVPUSH ONE (23:00)
[2022-09-27 23:12] LABS: CORONAVIRUS COVID-19 NAA NEGATIVE (NEGATIVE)
[2022-09-28] MEDS ORDERED: LORazepam 2 MG/ML SDV IVPUSH ONE (01:13)
[2022-09-28] MEDS ORDERED: cloNIDine 0.1 MG Tab PO ONE (04:00)
[2022-09-28 05:20] LABS: ESTIMATED GFR 98 mL/min (>60)
[2022-09-28] MEDS ORDERED: Sodium Chloride 0.9% 1,000 ML IV SCH (05:45)
[2022-09-28 09:30] VITALS: BP 165/114; PULSE 92
[2022-09-28] MEDS ORDERED: cloNIDine 0.1 MG Tab PO SCH (21:00)
== END 2022-09-28 10:03 | disposition home or self-care (01) ==
LOC: JP.ED 20:23
DX: K85.20 Alcohol induced acute pancreatitis without necrosis or infection (principal); I10 Essential (primary) hypertension; H10.33 Unspecified acute conjunctivitis, bilateral; B30.9 Viral conjunctivitis, unspecified; E87.6 Hypokalemia; E86.0 Dehydration; E87.1 Hypo-osmolality and hyponatremia; K52.9 Noninfective gastroenteritis and colitis, unspecified; R91.8 Other nonspecific abnormal finding of lung field; R91.1 Solitary pulmonary nodule; E87.8 Other disorders of electrolyte and fluid balance, not elsewhere classified; K21.9 Gastro-esophageal reflux disease without esophagitis; Z79.899 Other long term (current) drug therapy; Z20.822 Contact with and (suspected) exposure to COVID-19
CPT/HCPCS: 0241U; 36415; 74177; 80053; 82140; 82803; 83605; 83690; 83735; 85025; 93005; 93010; 96361; 96365; 96366; 96375; 99284; A9270; J0780; J2405; J3480; J3490; J7030; Q9967

== ENCOUNTER 2022-10-13 15:56 | Emergency (ER) | payer BC ==
[2022-10-13 16:45] LABS: ESTIMATED GFR 98 mL/min (>60)
[2022-10-13] MEDS ORDERED: cloNIDine 0.1 MG Tab PO ONE (16:45)
[2022-10-13 18:01] VITALS: BP 174/109; PULSE 104
== END 2022-10-13 19:19 | disposition home or self-care (01) ==
LOC: JP.ED 15:56
DX: F10.10 Alcohol abuse, uncomplicated (principal); I10 Essential (primary) hypertension; K21.9 Gastro-esophageal reflux disease without esophagitis; Z79.899 Other long term (current) drug therapy; Y90.8 Blood alcohol level of 240 mg/100 ml or more
CPT/HCPCS: 36415; 80053; 80307; 83690; 85025; 85610; 93005; 99284; A9270

== ENCOUNTER 2024-06-03 10:19 | Emergency (ER) | payer SELFPAY ==
[2024-06-03] MEDS: Sodium Chloride 0.9% 1,000 ML IV ONE (11:37)
[2024-06-03] MEDS: Ondansetron 4 MG/2 ML SDV IVPUSH ONE (11:38)
[2024-06-03] MEDS: LORazepam 2 MG/ML SDV IVPUSH ONE ×2 (11:39→16:42)
[2024-06-03] MEDS ORDERED: Iopamidol 612 MG/ML 100 ML Bottle IV ONE (11:53)
[2024-06-03 12:05] LABS: BASOPHILS PERCENT AUTO 0.3 % (0.1-1.3); EOSINOPHILS PERCENT AUTO 0.1 % (0.0-5.4); HEMATOCRIT 35.9 % (34.3-46.0); IMMATURE GRAN ABSOLUTE AUTO 0.27 K/uL (0.00-0.23); LYMPHOCYTES ABSOLUTE AUTO 0.83 K/uL (0.8-3.3); LYMPHOCYTES PERCENT AUTO 12.4 % (11.4-47.7); MEAN CORPUSCULAR HEMOGLOBIN 34.1 pg (31.6-35.5); MEAN CORPUSCULAR VOLUME 87.6 fL (81.4-99.0); MONOCYTES ABSOLUTE AUTO 0.62 K/uL (0.20-0.90); MONOCYTES PERCENT AUTO 9.3 % (3.3-12.6); NEUTROPHILS ABSOLUTE AUTO 4.92 K/uL (1.0-7.6); NEUTROPHILS PERCENT AUTO 73.9 % (40.0-78.1); PLATELET COUNT,PLT 306 K/uL (130-375); WHITE BLOOD CELL COUNT,WBC 6.7 K/uL (3.2-11.0)
[2024-06-03 12:07] LABS: BASOPHILS ABSOLUTE AUTO 0.02 K/uL (0.00-0.10); EOSINOPHILS ABSOLUTE AUTO 0.01 K/uL (0.00-0.40)
[2024-06-03 12:31] LABS: CORONAVIRUS COVID-19 NAA NEGATIVE (NEGATIVE); INFLUENZA A NAA NEGATIVE (NEGATIVE); INFLUENZA B NAA NEGATIVE (NEGATIVE); RESPIRATORY SYNCYTIAL VIR NAA NEGATIVE (NEGATIVE)
[2024-06-03] MEDS: Sodium Chloride 0.9% 10 ML Syringe FLUSH ONE (12:32)
[2024-06-03] MEDS: Sodium Chloride 0.9% 100 ML IV ONE (12:32)
[2024-06-03] MEDS: Sodium Chloride 0.9% 1,000 ML IV SCH (13:27)
[2024-06-03 13:58] LABS: ALANINE AMINOTRANSFERASE,ALT 23 U/L (12-78); ALBUMIN 3.6 g/dL (3.4-5.0); ALKALINE PHOSPHATASE 65 U/L (46-116); ASPARTATE AMNIOTRANSFERASE,AST 28 U/L (15-37); BLOOD UREA NITROGEN,BUN 17 mg/dL (7-18); CALCIUM 9.2 mg/dL (8.5-10.1); CARBON DIOXIDE,CO2 24 mmol/L (21-32); CHLORIDE,CL 88 mmol/L (100-108); CREATININE 0.8 mg/dL (0.6-1.0); ESTIMATED GFR 83 mL/min (>60); GLUCOSE RANDOM 101 mg/dL (74-106); PROTEIN TOTAL,TP 7.4 g/dL (6.4-8.2); SODIUM,NA 123 mmol/L (140-148)
[2024-06-03 14:20] LABS: APPEARANCE,URINE CLEAR (CLEAR); BILIRUBIN,URINE NEGATIVE (NEGATIVE); COLOR,URINE YELLOW (YELLOW); GLUCOSE,URINE 100 mg/dL (NEGATIVE); KETONES,URINE TRACE mg/dL (NEGATIVE); LEUKOCYTE ESTERASE,URINE SMALL (NEGATIVE); NITRITE,URINE NEGATIVE (NEGATIVE); OCCULT BLOOD,URINE NEGATIVE (NEGATIVE); PROTEIN,URINE TRACE mg/dL (NEGATIVE); UROBILINOGEN,URINE 0.2 EU/dL (0.2-1.0)
[2024-06-03 14:34] LABS: BACTERIA,URINE RARE; EPITHELIAL CELLS,URINE FEW; MUCUS,URINE NOT SEEN; RBC,URINE NOT SEEN (0-5)
[2024-06-03 14:35] LABS: AMORPHOUS SEDIMENT,URINE FEW
[2024-06-03] MEDS: Labetalol 100 MG/20 ML MDV IV ONE (14:35)
[2024-06-03 16:45] VITALS: BP 220/116; PULSE 96
[2024-06-03 17:24] LABS: ALANINE AMINOTRANSFERASE,ALT 21 U/L (12-78); ALBUMIN 3.4 g/dL (3.4-5.0); ALKALINE PHOSPHATASE 60 U/L (46-116); ANION GAP 13.3 mmol/L (5.0-14.0); ASPARTATE AMNIOTRANSFERASE,AST 15 U/L (15-37); BILIRUBIN TOTAL 0.8 mg/dL (0.2-1.0); BLOOD UREA NITROGEN,BUN 13 mg/dL (7-18); CALCIUM 8.9 mg/dL (8.5-10.1); CARBON DIOXIDE,CO2 26 mmol/L (21-32); CHLORIDE,CL 91 mmol/L (100-108); CREATININE 0.8 mg/dL (0.6-1.0); ESTIMATED GFR 83 mL/min (>60); GLUCOSE RANDOM 122 mg/dL (74-106); POTASSIUM,K 3.3 mmol/L (3.6-5.2); PROTEIN TOTAL,TP 6.9 g/dL (6.4-8.2); SODIUM,NA 127 mmol/L (140-148)
== END 2024-06-03 18:30 | disposition home or self-care (01) ==
LOC: JP.ED 10:19
DX: E86.0 Dehydration (principal); E87.1 Hypo-osmolality and hyponatremia; F10.20 Alcohol dependence, uncomplicated; I10 Essential (primary) hypertension; K21.9 Gastro-esophageal reflux disease without esophagitis; Z90.49 Acquired absence of other specified parts of digestive tract; Z79.899 Other long term (current) drug therapy
CPT/HCPCS: 0241U; 36415; 70450; 71045; 74177; 80053; 80307; 81001; 83605; 85025; 93010; 96361; 96374; 96375; 96376; 99284; 99285; J1921; J2060; J2405; J3490; J7030

== ENCOUNTER 2024-07-14 12:14 | Observation (INO) | payer OTHER ==
[2024-07-14 13:19] LABS: BASOPHILS PERCENT AUTO 0.2 % (0.1-1.3); EOSINOPHILS PERCENT AUTO 0.2 % (0.0-5.4); HEMATOCRIT 32.8 % (34.3-46.0); HEMOGLOBIN 11.8 g/dL (11.2-15.5); IMMATURE GRAN ABSOLUTE AUTO 0.03 K/uL (0.00-0.23); IMMATURE GRAN PERCENT AUTO 0.6 % (0.0-0.7); LYMPHOCYTES ABSOLUTE AUTO 1.32 K/uL (0.8-3.3); LYMPHOCYTES PERCENT AUTO 24.6 % (11.4-47.7); MEAN CORPUSCULAR VOLUME 94.5 fL (81.4-99.0); MONOCYTES ABSOLUTE AUTO 0.51 K/uL (0.20-0.90); MONOCYTES PERCENT AUTO 9.5 % (3.3-12.6); NEUTROPHILS ABSOLUTE AUTO 3.48 K/uL (1.0-7.6); NEUTROPHILS PERCENT AUTO 64.9 % (40.0-78.1); PLATELET COUNT,PLT 177 K/uL (130-375); RED BLOOD CELL COUNT 3.47 M/uL (3.77-5.24); WHITE BLOOD CELL COUNT,WBC 5.4 K/uL (3.2-11.0)
[2024-07-14] MEDS: Sodium Chloride 0.9% 1,000 ML IV SCH (13:20)
[2024-07-14 13:22] LABS: BASOPHILS ABSOLUTE AUTO 0.01 K/uL (0.00-0.10); EOSINOPHILS ABSOLUTE AUTO 0.01 K/uL (0.00-0.40)
[2024-07-14 13:47] LABS: ALANINE AMINOTRANSFERASE,ALT 53 U/L (12-78); ALBUMIN 3.5 g/dL (3.4-5.0); ALKALINE PHOSPHATASE 80 U/L (46-116); ASPARTATE AMNIOTRANSFERASE,AST 56 U/L (15-37); BILIRUBIN TOTAL 1.9 mg/dL (0.2-1.0); BLOOD UREA NITROGEN,BUN 27 mg/dL (7-18); CALCIUM 9.6 mg/dL (8.5-10.1); CARBON DIOXIDE,CO2 30 mmol/L (21-32); CHLORIDE,CL 94 mmol/L (100-108); CREATININE 1.3 mg/dL (0.6-1.0); EST CRCL DRUG DOSING (CG) 35.52 mL/min; ESTIMATED GFR 46 mL/min (>60); GLUCOSE RANDOM 131 mg/dL (74-106); PROTEIN TOTAL,TP 7.1 g/dL (6.4-8.2); SODIUM,NA 133 mmol/L (140-148)
[2024-07-14] MEDS: Ondansetron 4 MG/2 ML SDV IVPUSH SCH (13:49)
[2024-07-14 13:53] LABS: ANION GAP 11.8 mmol/L (5.0-14.0)
[2024-07-14 13:55] LABS: POTASSIUM,K 2.8 mmol/L (3.6-5.2)
[2024-07-14] MEDS: NS with KCl 40mEq 1,000 ML IV SCH (14:43)
[2024-07-14] MEDS: Potassium Chloride 10 MEQ Cap.ER PO ONE (14:44)
[2024-07-14] MEDS ORDERED: LORazepam 2 MG/ML SDV IVPUSH PRN (17:05)
[2024-07-14] MEDS ORDERED: Magnesium Hydroxide 400 MG/5 ML Susp 30 ML Cup PO PRN (17:05)
[2024-07-14] MEDS ORDERED: Ondansetron 4 MG/2 ML SDV IV PRN (17:05)
[2024-07-14] MEDS ORDERED: Sennosides/Docusate Sodium 50-8.6 MG Tab PO PRN (17:05)
[2024-07-14] MEDS ORDERED: Ondansetron 4 MG Tab.DIS PO PRN (17:05)
[2024-07-14] MEDS ORDERED: Acetaminophen 325 MG Tab PO PRN (17:05)
[2024-07-14] MEDS ORDERED: Acetaminophen/HYDROcodone 325-5 MG Tab PO PRN (17:06)
[2024-07-14] MEDS ORDERED: Amitriptyline 10 MG Tab PO SCH (21:00)
[2024-07-14 22:03] LABS: APPEARANCE,URINE CLOUDY (CLEAR); BILIRUBIN,URINE SMALL (NEGATIVE); COLOR,URINE YELLOW (YELLOW); GLUCOSE,URINE 100 mg/dL (NEGATIVE); KETONES,URINE 15 mg/dL (NEGATIVE); LEUKOCYTE ESTERASE,URINE TRACE (NEGATIVE); NITRITE,URINE NEGATIVE (NEGATIVE); OCCULT BLOOD,URINE NEGATIVE (NEGATIVE); PH,URINE 6.5 (5.0-8.0); PROTEIN,URINE 30 mg/dL (NEGATIVE)
[2024-07-14 22:17] LABS: AMORPHOUS SEDIMENT,URINE NOT SEEN; BACTERIA,URINE FEW; EPITHELIAL CELLS,URINE MODERATE; MUCUS,URINE FEW; RBC,URINE 0-5 (0-5)
[2024-07-15 05:22] VITALS: BP 108/73
[2024-07-15 06:00] LABS: HEMATOCRIT 30.5 % (34.3-46.0); HEMOGLOBIN 10.9 g/dL (11.2-15.5); MEAN CORPUSCULAR HGB CONC 35.7 g/dL (31.6-35.5); RED BLOOD CELL COUNT 3.21 M/uL (3.77-5.24); WHITE BLOOD CELL COUNT,WBC 4.5 K/uL (3.2-11.0)
[2024-07-15 06:21] LABS: A/G RATIO 0.9 (1.2-2.2); ALANINE AMINOTRANSFERASE,ALT 63 U/L (12-78); ALKALINE PHOSPHATASE 73 U/L (46-116); ASPARTATE AMNIOTRANSFERASE,AST 75 U/L (15-37); BILIRUBIN TOTAL 1.1 mg/dL (0.2-1.0); BLOOD UREA NITROGEN,BUN 20 mg/dL (7-18); CALCIUM 8.9 mg/dL (8.5-10.1); CARBON DIOXIDE,CO2 28 mmol/L (21-32); CHLORIDE,CL 99 mmol/L (100-108); CREATININE 0.9 mg/dL (0.6-1.0); EST CRCL DRUG DOSING (CG) 48.56 mL/min; ESTIMATED GFR 72 mL/min (>60); GLUCOSE RANDOM 109 mg/dL (74-106); POTASSIUM,K 3.4 mmol/L (3.6-5.2); PROTEIN TOTAL,TP 6.3 g/dL (6.4-8.2); SODIUM,NA 134 mmol/L (140-148)
[2024-07-15 06:22] LABS: ANION GAP 10.4 mmol/L (5.0-14.0)
[2024-07-15 06:23] LABS: C-REACTIVE PROTEIN < 0.50 mg/dL (<0.50)
[2024-07-15 06:55] VITALS: PULSE 83
[2024-07-15] MEDS: Potassium Chloride 10 MEQ in Premix Bag 1 BAG IV SCH (08:13)
[2024-07-15] MEDS: Pantoprazole 40 MG Tab.CR PO SCH (08:16)
[2024-07-15] MEDS: Venlafaxine 75 MG Cap.ER PO SCH (08:19)
[2024-07-15] MEDS: Sodium Chloride 1 GM Tab PO SCH (08:38)
[2024-07-15] MEDS ORDERED: Venlafaxine 37.5 MG Cap.ER PO SCH (09:00)
== END 2024-07-15 12:50 | disposition home or self-care (01) ==
LOC: JP.ED 12:14 → JP.ICU 15:42
PROVIDERS: ADMIT Hospitalist; ATTEND Hospitalist
DX: N17.9 Acute kidney failure, unspecified (principal); E87.6 Hypokalemia; E87.1 Hypo-osmolality and hyponatremia; I10 Essential (primary) hypertension; F32.A Depression, unspecified; Z79.899 Other long term (current) drug therapy
CPT/HCPCS: 36415; 70450; 70486; 80053; 80307; 81001; 84484; 85025; 85027; 86140; 97161; 99223; 99239; 99285; A9270; J2405; J3480; J7030; 96361; 96365; 96366; 96375; 99284-25; G0378

== ENCOUNTER 2025-08-23 20:52 | Emergency (ER) | payer OTHER ==
[2025-08-23 21:01] VITALS: BP 123/85; PULSE 99
[2025-08-23] MEDS ORDERED: Iopamidol 612 MG/ML 100 ML Bottle IV SCH (21:15)
[2025-08-23 21:19] LABS: BASOPHILS ABSOLUTE AUTO 0.07 K/uL (0.00-0.10); BASOPHILS PERCENT AUTO 1.3 % (0.1-1.3); EOSINOPHILS ABSOLUTE AUTO 0.07 K/uL (0.00-0.40); EOSINOPHILS PERCENT AUTO 1.3 % (0.0-5.4); IMMATURE GRAN PERCENT AUTO 0.4 % (0.0-0.7); LYMPHOCYTES ABSOLUTE AUTO 1.59 K/uL (0.8-3.3); LYMPHOCYTES PERCENT AUTO 30.0 % (11.4-47.7); MONOCYTES ABSOLUTE AUTO 0.25 K/uL (0.20-0.90); MONOCYTES PERCENT AUTO 4.7 % (3.3-12.6); NEUTROPHILS ABSOLUTE AUTO 3.30 K/uL (1.0-7.6); NEUTROPHILS PERCENT AUTO 62.3 % (40.0-78.1); PLATELET COUNT,PLT 406 K/uL (130-375); RED BLOOD CELL COUNT 3.24 M/uL (3.77-5.24); WHITE BLOOD CELL COUNT,WBC 5.3 K/uL (3.2-11.0)
[2025-08-23 21:29] LABS: IMMATURE GRAN ABSOLUTE AUTO 0.02 K/uL (0.00-0.23)
[2025-08-23 21:43] LABS: BLOOD UREA NITROGEN,BUN 22.0 mg/dL (7-18); CARBON DIOXIDE,CO2 22.0 mmol/L (21-32); CHLORIDE,CL 107.0 mmol/L (100-108); CREATININE 1.0 mg/dL (0.6-1.0); EST CRCL DRUG DOSING (CG) 50.2 mL/min; ESTIMATED GFR 63.0 mL/min (>60); GLUCOSE RANDOM 90.0 mg/dL (74-106); POTASSIUM,K 4.4 mmol/L (3.6-5.2); SODIUM,NA 144.0 mmol/L (140-148); TROPONIN I HIGH SENSITIVITY 7.6 pg/mL (<=60.3)
[2025-08-23] MEDS: Lidocaine 1% with EPINEPHrine 1:100,000 50 ML MDV SUBCUT STA (22:45)
== END 2025-08-23 23:35 | disposition home or self-care (01) ==
LOC: JP.ED 20:52
DX: S01.01XA Laceration without foreign body of scalp, initial encounter (principal); I10 Essential (primary) hypertension; K21.9 Gastro-esophageal reflux disease without esophagitis; Z79.899 Other long term (current) drug therapy; Z90.49 Acquired absence of other specified parts of digestive tract; W01.0XXA Fall on same level from slipping, tripping and stumbling without subsequent striking against object, initial encounter
CPT/HCPCS: 12002; 36415; 70450; 71260; 72125; 76377; 80048; 84484; 85025; 99283; 99284